=== PATIENT | female | born 1990 | race African-American/Black ===

== ENCOUNTER 2017-10-09 09:51 | Emergency (ER) | payer OTHER ==
[~2017-10-09] VITALS: Ht 170.2 cm; Wt 129.7 kg
[2017-10-09] MEDS ORDERED: FUROSEMIDE20 M1 ORAL (10:02)
[2017-10-09] MEDS ORDERED: LISINOPRIL2.5 MG ORAL (10:02)
[2017-10-09] MEDS ORDERED: Morphine Sulfate 4mg/ml Inj IVP ONE ×2 (10:30→14:45)
[2017-10-09 10:51] LABS: APPEARANCE,URINE CLEAR; BILIRUBIN, URINE NEGATIVE (NEGATIVE); GLUCOSE, URINE (UA) NEGATIVE (NEGATIVE); KETONES,URINE 2+ (NEGATIVE); LEUKOCYTE ESTERASE ,URINE NEGATIVE (NEGATIVE); NITRITE,URINE NEGATIVE (NEGATIVE); PH,URINE 6 (4.5-8.0); PROTEIN,URINE NEGATIVE (NEGATIVE); UROBILINOGEN,URINE NORMAL MG/DL (0.0-1.0)
[2017-10-09 10:53] LABS: COLOR,URINE YELLOW
[2017-10-09] MEDS ORDERED: DiphenhydrAMINE 50mg/ml Inj IVP ONE ×2 (11:15→15:30)
[2017-10-09 11:35] LABS: BASOPHILS % (AUTO) 0.9 % (0.0-2.0); EOSINOPHILS % (AUTO) 0.4 % (0.0-3.0); HEMATOCRIT 30.6 % (37.0-47.0); HEMOGLOBIN 9.6 G/DL (12.0-16.0); LYMPHOCYTES % (AUTO) 34.9 % (20.0-45.0); MEAN CORPUSCULAR VOLUME 76 FL (80-99); MONOCYTES % (AUTO) 11.9 % (1.0-10.0); NEUTROPHILS % (AUTO) 51.8 % (45.0-75.0); PLATELET COUNT 405 K/UL (150-450); RED BLOOD COUNT 4.01 M/UL (4.20-5.40); RED CELL DISTRIBUTION WIDTH 15.1 % (11.6-14.8); WHITE BLOOD COUNT 4.8 K/UL (4.8-10.8)
[2017-10-09 11:46] LABS: ANION GAP 7 mmol/L (5-15); BLOOD UREA NITROGEN 8 mg/dL (7-18); CALCIUM 8.8 MG/DL (8.5-10.1); CARBON DIOXIDE 27 MMOL/L (21-32); CHLORIDE 105 MMOL/L (98-107); POTASSIUM 3.8 MMOL/L (3.5-5.1); SODIUM 138 MMOL/L (136-145)
[2017-10-09 11:52] LABS: ALANINE AMINOTRANSFERASE 22 U/L (12-78); ALBUMIN 3.3 G/DL (3.4-5.0); ALBUMIN/GLOBULIN RATIO 0.8 (1.0-2.7); ALKALINE PHOSPHATASE 65 U/L (46-116); ASPARTATE AMINO TRANSFERASE 20 U/L (15-37); BILIRUBIN,TOTAL 0.3 MG/DL (0.2-1.0)
--- NOTE | 2017-10-09 12:09 | Diagnostic Imaging Report ---
Indication: Line placement Comparison: None A single view chest radiograph was obtained. Findings: There is a PICC line on the right side. The tip is projected over the SVC in good position. Sternotomy is noted. Lungs are clear. The heart is prominent size but accounting for low lung volumes may be normal. The bones are unremarkable. IMPRESSION: PICC line appears to be in good position.
[2017-10-09] MEDS ORDERED: Heparin 2000 units/Ns 1000ml IV ONE (13:00)
[2017-10-09] MEDS ORDERED: Lidocaine 1% MPF 10mg/ml 5ml IM ONE ×3 (13:00)
[2017-10-09 14:25] VITALS: BP 133/62
--- NOTE | 2017-10-09 14:37 | Diagnostic Imaging Report ---
Indication: Abdominal pain Technique: Continuous helical transaxial imaging of the abdomen and pelvis was obtained from the lung bases to the pubic symphysis during intravenous contrast administration. Coronal 2-D reformats were also obtained. Study obtained in a Siemens sensation [address] Automatic Exposure Control was utilized. Total Dose length Product (DLP): 1173.[address] Dose Index Volume (CTDIvol): 19.75 mGy Comparison: None Findings: There is a small hiatal hernia present. Lung bases are clear. The gallbladder is absent. Normal appendix noted. Uterus demonstrated. No bowel obstruction, free fluid or free air identified. Bladder is unremarkable in appearance. There is no hydronephrosis. Solid organs are normal in appearance. There is a 4 x 1.7 cm cystic structure in the right adnexa. This probably ovarian. IMPRESSION: Probable right ovarian cyst Hiatal hernia Apparent cholecystectomy. The CT scanner at [facility] is accredited by the [employer] and the scans are performed using dose optimization techniques as appropriate to a performed exam including Automatic Exposure control.
[2017-10-09 15:00] VITALS: BP 130/80
--- NOTE | 2017-10-09 15:10 | Diagnostic Imaging Report ---
Indication: middle or intermediate [employer] principal venous access Findings: After the indications, procedure, risks, complications, and alternatives of the procedure were explained, written informed consent was obtained. The right upper extremity was prepped with alcohol. All elements of maximal sterile barrier technique were followed including usage of a cap, mask, sterile gown, sterile gloves, hand hygiene and a large sterile sheet. Sonographic evaluation of the upper extremity was performed demonstrating a patent and compressible brachial vein. Access was obtained under real-time ultrasound guidance (with utilization of sterile gel and sterile probe cover) and digital image was saved and archived. An .018 wire was introduced. Needle exchanged for a 5 [place] peel-away sheath. Measurements were obtained. A 5 [place] dual-lumen Power PICC line catheter was cut to 20 cm and introduced over the wire. Peel-away sheath and wire were removed.Catheter was secured to the skin using 2-0 Prolene suture. Both ports aspirate and flush easily. Fluoroscopic images show distal tip in the superior vena cava. Total fluoroscopic time 1.9 minutes. Impression: Successful placement of an upper extremity PICC line catheter
[2017-10-09] MEDS ORDERED: NORCO 5-325 TA1 EACH ORAL (15:11)
--- NOTE | 2017-10-09 17:21 | Emergency Room Report ---
History of Present Illness General Chief Complaint: Abdominal Pain Source: Patient Present Illness HPI 26-year-old female presents ED for evaluation. Patient presented with lower abdominal pain 7 days. Localized to right lower quadrant. Sharp. 7/10, nonradiating. Notes nausea and vomiting. Denies fevers or chills. Denies flank pain. Patient has a PICC line in place for blood transfusions. No other aggravating or relieving factors. Denies any other associated symptoms Allergies: Coded Allergies: ASPIRIN (Unverified Allergy, Unknown, 10/09/17) METOCLOPRAMIDE (Verified Allergy, Unknown, 10/09/17) Patient History Past Medical History: other - anemia Past Surgical History: none Pertinent Family History: none Social History: Denies: smoking, alcohol use, drug use Last Menstrual Period: 10/05/17 Now: No Immunizations: UTD Reviewed Nursing Documentation: PMH: Agreed, PSxH: Agreed Nursing Documentation-PMH Past Medical History: No History, Except For Hx Cardiac Problems: Yes Review of Systems All Other Systems: negative except mentioned in HPI Physical Exam Vital Signs Date Time Temp Pulse Resp B/P (MAP) Pulse Ox O2 Delivery O2 Flow Rate FiO2 10/09/17 09:57 98.5 82 18 106/71 98 Room Air 98.4 Sp02 EP Interpretation: reviewed, normal General Appearance: no apparent distress, alert, GCS 15, non-toxic, obese Head: normocephalic, atraumatic Eyes: bilateral eye normal inspection, bilateral eye PERRL ENT: hearing grossly normal, normal pharynx, no angioedema, normal voice Neck: full range of motion, supple/symm/no masses Respiratory: chest non-tender, lungs clear, normal breath sounds, speaking full sentences Cardiovascular #1: regular rate, rhythm, no edema Cardiovascular #2: 2+ carotid (R), 2+ carotid (L), 2+ radial (R), 2+ radial (L) , 2+ dorsalis pedis (R), 2+ dorsalis pedis (L) Gastrointestinal: normal bowel sounds, soft, non-distended, no guarding, no rebound, tenderness - RLQ Rectal: deferred Genitourinary: normal inspection, no CVA tenderness Musculoskeletal: back normal, gait/station normal, normal range of motion, non- tender Neurologic: alert, oriented x3, responsive, motor strength/tone normal, sensory intact, speech normal Psychiatric: judgement/insight normal, memory normal, mood/affect normal, no suicidal/homicidal ideation Reflexes: 3+ bicep (R), 3+ bicep (L), 3+ tricep (R), 3+ tricep (L), 3+ knee (R) , 3+ knee (L) Skin: normal color, no rash, warm/dry, well hydrated Lymphatic: no adenopathy Medical Decision Making Diagnostic Impression: Primary Impression: Ovarian cyst Qualified Codes: N83.201 - Unspecified ovarian cyst, right side Additional Impression: Occluded PICC line Qualified Codes: T82.898A - Other specified complication of vascular prosthetic devices, implants and grafts, initial encounter ER Course Hospital Course 26-year-old F presents to ED with abdominal pain, with nausea Differential diagnosis includes-appendicitis, cholecystitis, small bowel obstruction, gastritis, Clinical course Patient placed on stretcher. After initial history and physical I ordered labs , IV fluids, pain medications and CT scan Labs - no leukocytosis, electrolytes ok, LFTs normal, UA unremarkable Attempt to use the PICC line was unsuccessful. PICC line was then replaced by radiology CT scan shows no evidence of appendicitis, likely right ovarian cyst Upon reassessment, patient states pain has improved. Discussed findings with patient. Safe for discharge I feel this is a highly complex case requiring extensive working including EKG/ Rhythm strip, Xray/CT/US, Blood/urine lab work, repeat exams while in ED, and administration of strong opiates/narcotics for pain control, admission to hospital or close patient follow up. Diagnosis - ovarian cyst, occluded PICC line Stable and discharged to home with Elizabeth. Followup with PMD. Return to ED if symptoms recur or worsen Labs Test 10/09/17 10:20 10/09/17 11:25 Urine Color Yellow Urine Appearance Clear Urine pH 6 (4.5-8.0) Urine Specific [place] 1.025 (1.005-1.035) Urine Protein Negative (NEGATIVE) Urine Glucose (UA) Negative (NEGATIVE) Urine Ketones 2+ (NEGATIVE) Urine Occult Blood 3+ (NEGATIVE) Urine Nitrite Negative (NEGATIVE) Urine Bilirubin Negative (NEGATIVE) Urine Urobilinogen Normal MG/DL (0.0-1.0) Urine Leukocyte Esterase Negative (NEGATIVE) Urine RBC 10-15 /HPF (0 - 2) Urine WBC 2-4 /HPF (0 - 2) Urine Squamous Epithelial Cells Few /LPF (NONE/OCC) Urine Bacteria Few /HPF (NONE) Urine Mucus Few /LPF (NONE/OCC) Urine HCG, Qualitative Negative White Blood Count 4.8 K/UL (4.8-10.8) Red Blood Count 4.01 M/UL (4.20-5.40) Hemoglobin 9.6 G/DL (12.0-16.0) Hematocrit 30.6 % (37.0-47.0) Mean Corpuscular Volume 76 FL (80-99) Mean Corpuscular Hemoglobin 23.9 PG (27.0-31.0) Mean Corpuscular Hemoglobin Concent 31.3 G/DL (32.0-36.0) Red Cell Distribution Width 15.1 % (11.6-14.8) Platelet Count 405 K/UL (150-450) Mean Platelet Volume 5.3 FL (6.5-10.1) Neutrophils (%) (Auto) 51.8 % (45.0-75.0) Lymphocytes (%) (Auto) 34.9 % (20.0-45.0) Monocytes (%) (Auto) 11.9 % (1.0-10.0) Eosinophils (%) (Auto) 0.4 % (0.0-3.0) Basophils (%) (Auto) 0.9 % (0.0-2.0) Sodium Level 138 MMOL/L (136-145) Potassium Level 3.8 MMOL/L (3.5-5.1) Chloride Level 105 MMOL/L (98-107) Carbon Dioxide Level 27 MMOL/L (21-32) Anion Gap 7 mmol/L (5-15) Blood Urea Nitrogen 8 mg/dL (7-18) Creatinine 1.0 MG/DL (0.55-1.30) Estimat Glomerular Filtration Rate > 60 mL/min (>60) Glucose Level 86 MG/DL (74-106) Calcium Level 8.8 MG/DL (8.5-10.1) Total Bilirubin 0.3 MG/DL (0.2-1.0) Aspartate Amino Transf (AST/SGOT) 20 U/L (15-37) Alanine Aminotransferase (ALT/SGPT) 22 U/L (12-78) Alkaline Phosphatase 65 U/L (46-116) Total Protein 7.3 G/DL (6.4-8.2) Albumin 3.3 G/DL (3.4-5.0) Globulin 4.0 g/dL Albumin/Globulin Ratio 0.8 (1.0-2.7) Lipase 126 U/L (73-393) Chest X-Ray Diagnostic Results Chest X-Ray Diagnostic Results : Chest X-Ray Ordered: Yes # of Views/Limited/Complete: 1 View Indication: Chest Pain EP Interpretation: Yes Interpretation: no consolidation, no effusion, no pneumothorax, no acute cardiopulmonary disease, other - PICC line in place Impression: No acute disease Electronically Signed by: Electronically signed by Damian Roberts MD CT/MRI/US Diagnostic Results CT/MRI/US Diagnostic Results : Imaging Test Ordered: CT A/P Impression R ovarian cyst Last Vital Signs Date Time Temp Pulse Resp B/P (MAP) Pulse Ox O2 Delivery O2 Flow Rate FiO2 10/09/17 14:25 98.5 90 19 133/62 100 Room Air 98.5 Status: improved Disposition: HOME, SELF-CARE Condition: Stable Scripts Hydrocodone Bit/Acetaminophen 5-325* (NORCO 5-325*) 1 Each Tablet 1 TAB ORAL Q6H Y for For Pain, #10 TAB 0 Refills Prov: DAMIAN ROBERTS M.D. 10/09/17 Departure Forms: Return to School Return to School On: Oct 10, 2017 School Release Restrictions: None Patient Instructions: Ovarian Cyst, [id number], PICC Home Guide DAMIAN ROBERTS M.D. Oct 09, 2017 17:21
== END 2017-10-09 16:00 | disposition home or self-care (01) ==
LOC: EMR 11:00
DX: N83.201 Unspecified ovarian cyst, right side (principal); T82.594A Other mechanical complication of infusion catheter, initial encounter; Y84.8 Other medical procedures as the cause of abnormal reaction of the patient, or of later complication, without mention of misadventure at the time of the procedure; Y92.9 Unspecified place or not applicable; K44.9 Diaphragmatic hernia without obstruction or gangrene; Z88.6 Allergy status to analgesic agent
CPT/HCPCS: 36415; 36569; 71045; 74177; 76937; 80053; 81003; 81025; 83690; 85025; 96374; 96375; 99284; J1200; J1644; J2270; J2405; Q9967

== ENCOUNTER 2017-10-13 09:35 | Emergency (ER) | payer OTHER ==
[~2017-10-13] VITALS: Ht 170.2 cm; Wt 134.3 kg
[~2017-10-13 09:35] MED LIST: FUROSEMIDE20 M1 ORAL; LISINOPRIL2.5 MG ORAL; NORCO 5-325 TA1 EACH ORAL
[2017-10-13] MEDS ORDERED: HYDROmorphone 1mg/ml Carpuject IVP ONE ×2 (10:15→11:45)
[2017-10-13 10:56] LABS: APPEARANCE,URINE SLIGHTLY CLOUDY; BILIRUBIN, URINE NEGATIVE (NEGATIVE); COLOR,URINE PALE YELLOW; GLUCOSE, URINE (UA) NEGATIVE (NEGATIVE); KETONES,URINE NEGATIVE (NEGATIVE); LEUKOCYTE ESTERASE ,URINE 3+ (NEGATIVE); NITRITE,URINE NEGATIVE (NEGATIVE); PH,URINE 5 (4.5-8.0); PROTEIN,URINE 1+ (NEGATIVE); UROBILINOGEN,URINE NORMAL MG/DL (0.0-1.0)
[2017-10-13 11:03] VITALS: BP 116/65
[2017-10-13 11:04] LABS: BASOPHILS % (AUTO) 1.6 % (0.0-2.0); HEMATOCRIT 30.7 % (37.0-47.0); HEMOGLOBIN 9.6 G/DL (12.0-16.0); LYMPHOCYTES % (AUTO) 28.5 % (20.0-45.0); MEAN CORPUSCULAR VOLUME 77 FL (80-99); MONOCYTES % (AUTO) 10.6 % (1.0-10.0); NEUTROPHILS % (AUTO) 58.3 % (45.0-75.0); PLATELET COUNT 380 K/UL (150-450); RED BLOOD COUNT 3.99 M/UL (4.20-5.40); RED CELL DISTRIBUTION WIDTH 15.2 % (11.6-14.8); WHITE BLOOD COUNT 4.7 K/UL (4.8-10.8)
[2017-10-13 11:09] LABS: ANION GAP 8 mmol/L (5-15); BLOOD UREA NITROGEN 8 mg/dL (7-18); CALCIUM 9.1 MG/DL (8.5-10.1); CARBON DIOXIDE 26 MMOL/L (21-32); CHLORIDE 103 MMOL/L (98-107); POTASSIUM 3.8 MMOL/L (3.5-5.1); SODIUM 137 MMOL/L (136-145)
[2017-10-13 11:13] LABS: ALANINE AMINOTRANSFERASE 24 U/L (12-78); ALBUMIN 3.4 G/DL (3.4-5.0); ALBUMIN/GLOBULIN RATIO 0.9 (1.0-2.7); ALKALINE PHOSPHATASE 65 U/L (46-116); ASPARTATE AMINO TRANSFERASE 20 U/L (15-37); BILIRUBIN,TOTAL 0.2 MG/DL (0.2-1.0)
[2017-10-13] MEDS ORDERED: DiphenhydrAMINE 50mg/ml Inj IVP ONE (11:15)
--- NOTE | 2017-10-13 11:24 | Diagnostic Imaging Report ---
Indication: Abdominal pain Technique: Supine views of the abdomen Comparison: None Findings: Bowel gas pattern is nonobstructive and nonspecific. Osseous structures demonstrate no acute abnormality. There is no gross free intraperitoneal air. Impression: Nonobstructive and nonspecific bowel gas pattern.
[2017-10-13] MEDS ORDERED: cefTRIAXone 1 GM in NS 55 ML IVPB ONE (12:45)
[2017-10-13] MEDS ORDERED: Hydromorphone 0.5mg/0.5ml inj IVP ONE (12:45)
--- NOTE | 2017-10-13 13:42 | Emergency Room Report ---
History of Present Illness General Chief Complaint: Abdominal Pain Source: Patient Present Illness HPI Patient presents with severe abdominal pain. Periumbilical, constant 10/10, aching pressure. Has had for 2 weeks. She was seen here and had a CT of the abdomen which revealed an ovarian cyst on 10/09. She had a PICC line replaced during that visit. She states she was admitted 2 weeks ago in [place] for a partial bowel obstruction and states it was improved with bowel rest (NG) and analgesia. She states the pain was somewhat improved during the last visit, however, it never went away and was still severe and continued. She had [place], but states this has not helped. Denies fevers, but feels feverish. + Nausea. Moved her bowels 3 days ago and states she has not been passing gas. Denies dysuria. She states morphine did nothing for her. She also states fentanyl has not helped. LNMP was 1 week ago. UA was clear last visit. H/O atrial septal defect with surgical repair. No chest pain, dyspnea, palpitations. H/O HTN on medication. PICC line (apparently "for blood transfusions"). Not specific in nature of anemia. Anxiety. No headache. Allergies: Coded Allergies: ASPIRIN (Unverified Allergy, Unknown, 10/09/17) METOCLOPRAMIDE (Verified Allergy, Unknown, 10/09/17) Patient History Past Medical History: see triage record Past Surgical History: shiv, other - PICC, atrial septal defect repair - sternotomy Social History: Denies: smoking, alcohol use Social History Narrative with family, recent move to [place] from [place] Last Menstrual Period: 1 wek ago Reviewed Nursing Documentation: PMH: Agreed, PSxH: Agreed Nursing Documentation-PMH Hx Cardiac Problems: Yes Review of Systems All Other Systems: negative except mentioned in HPI Physical Exam Vital Signs Date Time Temp Pulse Resp B/P (MAP) Pulse Ox O2 Delivery O2 Flow Rate FiO2 10/13/17 09:45 98.8 88 16 114/80 100 Room Air 98.8 Sp02 EP Interpretation: reviewed, normal General Appearance: well appearing, GCS 15, mild distress, other - standing at bedside, rocking with pain Head: normocephalic Eyes: bilateral eye normal inspection, bilateral eye PERRL ENT: moist mucus membranes Neck: supple Respiratory: lungs clear, normal breath sounds Cardiovascular #1: regular rate, rhythm, other - sternotomy scar Cardiovascular #2: 2+ radial (R) Gastrointestinal: normal inspection, normal bowel sounds, no mass, non- distended, no rebound, guarding - minimal, tenderness - periumbilical, overweight Musculoskeletal: back normal, gait/station normal, normal range of motion, no calf tenderness Neurologic: alert, oriented x3, grossly normal Psychiatric: anxious - and in apparent pain Skin: normal inspection, warm/dry Medical Decision Making Diagnostic Impression: Primary Impression: Abdominal pain Qualified Codes: R10.33 - Periumbilical pain Additional Impressions: Urinary tract infection Qualified Codes: N30.00 - Acute cystitis without hematuria Ovarian cyst Qualified Codes: N83.201 - Unspecified ovarian cyst, right side AMA Anemia Qualified Codes: D50.9 - Iron deficiency anemia, unspecified ER Course The patient presents with severe abdominal pain. Differential includes appendicitis, small bowel obstruction, urinary tract infection, ovarian cyst, gastroenteritis amongst others. The patient's not moving her bowels for 3 days and stopped passing gas which makes small bowel obstruction more likely. Evaluation will be with labs and plain films as a CT was just performed. If labs are abnormal then CT may be repeated. The patient will be treated with IV hydration and analgesia. She also needs Zofran and she's been vomiting. She is fairly specific in requesting Dilaudid. Initial dose of dilaudid not help. (She appears improved and in less pain.) Repeat dilaudid. Abd films without SBO. Labs with pyuria. Normal WBC. Low H/H (same as prior) . CMP unremarkable. UA with new pyuria. Rocephin given. (CT reviewed.) Patient requesting more dilaudid. Given. More calm and not in severe pain, but states pain is still "severe". (Possible opiate tolerance and seeking behavior. However, pain medicine repeated.) Patient needing admission as still significant pain and concern over possible partial SBO. Discussed and approved to be admitted here. Patient refuses to be admitted here and wants to either go to [facility] or [facility]. She made several calls to attempt to arrange transfer. I also called, but case finisher refused transfer. Told she also needs treatment for UTI. Patient refusing admission here as "her family lives nearer to [facility]" and "anxiety" of other hospitals. I told her she risks dying if she leaves. She states it is our fault that she is leaving as we could not arrange for her transfer. Patient signed out AMA. Laboratory Tests Test 10/13/17 09:57 10/13/17 10:40 Urine Color Pale yellow Urine Appearance Slightly cloudy Urine pH 5 (4.5-8.0) Urine Specific [place] 1.025 (1.005-1.035) Urine Protein 1+ (NEGATIVE) H Urine Glucose (UA) Negative (NEGATIVE) Urine Ketones Negative (NEGATIVE) Urine Occult Blood 3+ (NEGATIVE) H Urine Nitrite Negative (NEGATIVE) Urine Bilirubin Negative (NEGATIVE) Urine Urobilinogen Normal MG/DL (0.0-1.0) Urine Leukocyte Esterase 3+ (NEGATIVE) H Urine RBC 2-4 /HPF (0 - 2) H Urine WBC Tntc /HPF (0 - 2) H Urine Squamous Epithelial Cells Many /LPF (NONE/OCC) H Urine Bacteria Few /HPF (NONE) Urine HCG, Qualitative Negative Urine Opiates Screen Negative (NEGATIVE) Urine Barbiturates Screen Negative (NEGATIVE) Phencyclidine (PCP) Screen Negative (NEGATIVE) Urine Amphetamines Screen Negative (NEGATIVE) Urine Benzodiazepines Screen Negative (NEGATIVE) Urine Cocaine Screen Negative (NEGATIVE) Urine Marijuana (THC) Screen Negative (NEGATIVE) White Blood Count 4.7 K/UL (4.8-10.8) L Red Blood Count 3.99 M/UL (4.20-5.40) L Hemoglobin 9.6 G/DL (12.0-16.0) L Hematocrit 30.7 % (37.0-47.0) L Mean Corpuscular Volume 77 FL (80-99) L Mean Corpuscular Hemoglobin 24.0 PG (27.0-31.0) L Mean Corpuscular Hemoglobin Concent 31.1 G/DL (32.0-36.0) L Red Cell Distribution Width 15.2 % (11.6-14.8) H Platelet Count 380 K/UL (150-450) Mean Platelet Volume 5.4 FL (6.5-10.1) L Neutrophils (%) (Auto) 58.3 % (45.0-75.0) Lymphocytes (%) (Auto) 28.5 % (20.0-45.0) Monocytes (%) (Auto) 10.6 % (1.0-10.0) H Eosinophils (%) (Auto) 1.0 % (0.0-3.0) Basophils (%) (Auto) 1.6 % (0.0-2.0) Prothrombin Time 10.5 SEC (9.30-11.50) Prothrombin Time INR 1.0 (0.9-1.1) PTT 30 SEC (23-33) Sodium Level 137 MMOL/L (136-145) Potassium Level 3.8 MMOL/L (3.5-5.1) Chloride Level 103 MMOL/L (98-107) Carbon Dioxide Level 26 MMOL/L (21-32) Anion Gap 8 mmol/L (5-15) Blood Urea Nitrogen 8 mg/dL (7-18) Creatinine 1.0 MG/DL (0.55-1.30) Estimate Glomerular Filtration Rate > 60 mL/min (>60) Glucose Level 97 MG/DL (74-106) Calcium Level 9.1 MG/DL (8.5-10.1) Total Bilirubin 0.2 MG/DL (0.2-1.0) Aspartate Amino Transferase (AST) 20 U/L (15-37) Alanine Aminotransferase (ALT) 24 U/L (12-78) Alkaline Phosphatase 65 U/L (46-116) Total Protein 7.4 G/DL (6.4-8.2) Albumin 3.4 G/DL (3.4-5.0) Globulin 4.0 g/dL Albumin/Globulin Ratio 0.9 (1.0-2.7) L Lipase 165 U/L (73-393) Other X-Ray Diagnostic Results Other X-Ray Diagnostic Results : X-Ray ordered: abd # of Views/Limited Vs Complete: 1 View Indication: Pain EP Interpretation: Yes Interpretation: nonspecific bowel gas, no sbo, other - paucity of gas Impression: Other Electronically Signed by: Haresh Da Silva MD Last Vital Signs Date Time Temp Pulse Resp B/P (MAP) Pulse Ox O2 Delivery O2 Flow Rate FiO2 10/13/17 17:04 98.8 76 15 123/65 100 Room Air 209.8 Status: improved Disposition: AGAINST MEDICAL ADVICE Condition: Serious Referrals: [facility],REFERRING (PCP) Haresh Da Silva M.D. Oct 13, 2017 13:42
[2017-10-13 14:23] VITALS: BP 123/65
[2017-10-13 17:04] VITALS: BP 123/65
== END 2017-10-13 15:15 | disposition left against medical advice (07) ==
LOC: EMR 10:04 → EDBEDREQ 10:32 → UNDOADMIN 14:31 → 3E 14:31 → EMR 15:15 → CANBEDREQ 15:18
DX: N30.00 Acute cystitis without hematuria (principal); R10.33 Periumbilical pain; N83.201 Unspecified ovarian cyst, right side; D50.9 Iron deficiency anemia, unspecified; Z90.49 Acquired absence of other specified parts of digestive tract; Z88.6 Allergy status to analgesic agent; Z88.8 Allergy status to other drugs, medicaments and biological substances; I10 Essential (primary) hypertension
CPT/HCPCS: 36415; 74018; 80053; 80307; 81003; 81025; 83690; 85025; 85610; 85730; 87086; 96361; 96374; 96375; 99284; J0696; J1170; J1200; J2405

== ENCOUNTER 2017-10-16 18:43 | Emergency (ER) | payer OTHER ==
[~2017-10-16] VITALS: Ht 170.2 cm; Wt 134.3 kg
--- NOTE | 2017-10-16 19:19 | Emergency Room Report ---
History of Present Illness General Chief Complaint: Abdominal Pain Source: Patient Present Illness HPI 26-year-old female, history of cardiomyopathy due to heart problems as a child. Also history of multiple abdominal surgeries including ovarian cystectomy, myomectomy for fibroids removal, cholecystectomy, presenting with abdominal pain for 1-1/2 weeks. Patient also states that the last time she had a bowel movement was 4 days ago, last time she passed gas was yesterday. Has had intractable nausea or vomiting, about 6 times a day. Complaining of abdominal pain all over but mostly around the umbilical region. No vaginal bleeding or discharge Allergies: Coded Allergies: ASPIRIN (Unverified Allergy, Severe, Anaphylaxis, 10/16/17) METOCLOPRAMIDE (Verified Allergy, Intermediate, 10/16/17) anxiety PROCHLORPERAZINE (Verified Allergy, Unknown, 10/16/17) anxiety Patient History Past Medical History: see triage record Past Surgical History: none Pertinent Family History: none Last Menstrual Period: 10/12/17 Now: No : 0 Reviewed Nursing Documentation: PMH: Agreed, PSxH: Agreed Nursing Documentation-PMH Hx Cardiac Problems: Yes - atrial septal defect cardiomegaly arrythmia Hx Gastrointestinal Problems: Yes - fibroids Review of Systems All Other Systems: negative except mentioned in HPI Physical Exam Vital Signs Date Time Temp Pulse Resp B/P (MAP) Pulse Ox O2 Delivery O2 Flow Rate FiO2 10/16/17 18:52 98.0 99 18 125/79 100 Room Air 98.1 Sp02 EP Interpretation: reviewed, normal General Appearance: mild distress Head: normocephalic, atraumatic Eyes: bilateral eye normal inspection, bilateral eye PERRL, bilateral eye EOMI ENT: normal ENT inspection, normal pharynx, normal voice, moist mucus membranes Neck: normal inspection, full range of motion, supple Respiratory: normal inspection, lungs clear, normal breath sounds, no respiratory distress, no retraction, no wheezing, speaking full sentences, chest symmetrical Cardiovascular #1: normal inspection, regular rate, rhythm, no edema, normal capillary refill Cardiovascular #2: 2+ radial (R), 2+ radial (L) Gastrointestinal: other - Large abdomen, soft, normal bowel sounds, some tenderness noted periumbilical region, no rebound Musculoskeletal: normal inspection, back normal, normal range of motion, non- tender Neurologic: normal inspection, alert, oriented x3, responsive, motor strength/ tone normal, sensory intact, normal gait, speech normal Psychiatric: normal inspection, judgement/insight normal, memory normal Skin: normal inspection, normal color, no rash, warm/dry, well hydrated, normal turgor Medical Decision Making Diagnostic Impression: Primary Impression: Abdominal pain Additional Impressions: Urinary tract infection Intractable nausea and vomiting ER Course 26-year-old female with 1-1/2 weeks of nausea vomiting and abdominal pain Differential Diagnosis: Gastritis, gastroenteritis, appendicitis, diverticulitis, SBO, UTI/pyelo Plan: Basic labs, ua, UCG Zofran, IVF Abdominal x-ray, consider CT ER course: Patient has remained HD stable during ED stay. +UTI, ceftriaxone given Ct neg for acute process Disposition: Patient will be admitted to outside hospital due to insurance DW Dr Lewis Please note that this Emergency Department Report was dictated using [employer] design manager technology software, occasionally this can lead to erroneous entry secondary to interpretation by the dictation equipment Laboratory Tests Test 10/16/17 19:30 10/16/17 21:10 Urine Color Pale yellow Urine Appearance Slightly cloudy Urine pH 5 (4.5-8.0) Urine Specific [place] 1.025 (1.005-1.035) Urine Protein Negative (NEGATIVE) Urine Glucose (UA) Negative (NEGATIVE) Urine Ketones 1+ (NEGATIVE) H Urine Occult Blood 1+ (NEGATIVE) H Urine Nitrite Negative (NEGATIVE) Urine Bilirubin Negative (NEGATIVE) Urine Urobilinogen Normal MG/DL (0.0-1.0) Urine Leukocyte Esterase 3+ (NEGATIVE) H Urine RBC 5-10 /HPF (0 - 2) H Urine WBC 10-15 /HPF (0 - 2) H Urine Squamous Epithelial Cells Moderate /LPF (NONE/OCC) H Urine Bacteria Moderate /HPF (NONE) H Urine HCG, Qualitative Negative (NEGATIVE) White Blood Count 6.4 K/UL (4.8-10.8) Red Blood Count 4.19 M/UL (4.20-5.40) L Hemoglobin 10.0 G/DL (12.0-16.0) L Hematocrit 32.0 % (37.0-47.0) L Mean Corpuscular Volume 76 FL (80-99) L Mean Corpuscular Hemoglobin 23.7 PG (27.0-31.0) L Mean Corpuscular Hemoglobin Concent 31.1 G/DL (32.0-36.0) L Red Cell Distribution Width 15.0 % (11.6-14.8) H Platelet Count 381 K/UL (150-450) Mean Platelet Volume 5.5 FL (6.5-10.1) L Neutrophils (%) (Auto) 55.3 % (45.0-75.0) Lymphocytes (%) (Auto) 31.6 % (20.0-45.0) Monocytes (%) (Auto) 10.3 % (1.0-10.0) H Eosinophils (%) (Auto) 1.2 % (0.0-3.0) Basophils (%) (Auto) 1.6 % (0.0-2.0) Sodium Level Pending Potassium Level Pending Chloride Level Pending Carbon Dioxide Level Pending Blood Urea Nitrogen Pending Creatinine Pending Estimate Glomerular Filtration Rate Pending Glucose Level Pending Calcium Level Pending Total Bilirubin Pending Aspartate Amino Transferase (AST) Pending Alanine Aminotransferase (ALT) Pending Alkaline Phosphatase Pending Total Protein Pending Albumin Pending Globulin Pending Lipase Pending CT/MRI/US Diagnostic Results CT/MRI/US Diagnostic Results : Imaging Test Ordered: CT abdomen pelvis Impression CT ABDOMEN & PELVIS Without Contrast: Unremarkable appendix. No colitis or bowel obstruction. Small hiatal hernia. Abdominal mesh. Solid organs within normal limits. Last Vital Signs Date Time Temp Pulse Resp B/P (MAP) Pulse Ox O2 Delivery O2 Flow Rate FiO2 10/16/17 18:52 98.0 99 18 125/79 100 Room Air 98.1 Disposition: XFER T-[facility] Condition: Serious Samuel Briscoe M.D. Oct 16, 2017 19:18
[2017-10-16 19:30] VITALS: BP 130/78
[2017-10-16 19:41] LABS: APPEARANCE,URINE SLIGHTLY CLOUDY; BILIRUBIN, URINE NEGATIVE (NEGATIVE); COLOR,URINE PALE YELLOW; GLUCOSE, URINE (UA) NEGATIVE (NEGATIVE); KETONES,URINE 1+ (NEGATIVE); LEUKOCYTE ESTERASE ,URINE 3+ (NEGATIVE); NITRITE,URINE NEGATIVE (NEGATIVE); PH,URINE 5 (4.5-8.0); PROTEIN,URINE NEGATIVE (NEGATIVE); UROBILINOGEN,URINE NORMAL MG/DL (0.0-1.0)
[2017-10-16] MEDS: Morphine Sulfate 4mg/ml Inj IVP ONE ×2 (20:09→21:37)
[2017-10-16 21:21] LABS: BASOPHILS % (AUTO) 1.6 % (0.0-2.0); EOSINOPHILS % (AUTO) 1.2 % (0.0-3.0); LYMPHOCYTES % (AUTO) 31.6 % (20.0-45.0); MEAN CORPUSCULAR VOLUME 76 FL (80-99); MONOCYTES % (AUTO) 10.3 % (1.0-10.0); NEUTROPHILS % (AUTO) 55.3 % (45.0-75.0); PLATELET COUNT 381 K/UL (150-450); RED BLOOD COUNT 4.19 M/UL (4.20-5.40); WHITE BLOOD COUNT 6.4 K/UL (4.8-10.8)
[2017-10-16 21:32] LABS: ANION GAP 7 mmol/L (5-15); BLOOD UREA NITROGEN 8 mg/dL (7-18); CALCIUM 8.3 MG/DL (8.5-10.1); CARBON DIOXIDE 24 MMOL/L (21-32); CHLORIDE 104 MMOL/L (98-107); POTASSIUM 3.9 MMOL/L (3.5-5.1); SODIUM 135 MMOL/L (136-145)
[2017-10-16 21:36] LABS: ALANINE AMINOTRANSFERASE 22 U/L (12-78); ALBUMIN 3.4 G/DL (3.4-5.0); ALBUMIN/GLOBULIN RATIO 0.8 (1.0-2.7); ALKALINE PHOSPHATASE 73 U/L (46-116); ASPARTATE AMINO TRANSFERASE 26 U/L (15-37); BILIRUBIN,TOTAL < 0.1 MG/DL (0.2-1.0)
[2017-10-16] MEDS: cefTRIAXone 1 GM in NS 55 ML IVPB ONE (21:37)
[2017-10-16] MEDS: DiphenhydrAMINE 50mg/ml Inj IVP ONE (21:49)
[2017-10-16 23:30] VITALS: BP 125/75
[2017-10-16] MEDS: Morphine Sulfate 2mg/ml Inj IVP ONE (23:45)
[2017-10-17 00:10] VITALS: BP 125/75
--- NOTE | 2017-10-17 08:49 | Diagnostic Imaging Report ---
Indication: Abdominal pain for 1 1/2 weeks, constipation, intractable nausea and vomiting Technique: Spiral acquisitions obtained through the abdomen and pelvis. No oral contrast utilized, per emergency room physician request No IV contrast utilized, per referring physician request.. Multiplanar reconstructions were generated. Total dose length product 1117.71 mGycm. CTDIvol(s) 19.95 mGy. Dose reduction achieved using automated exposure control Comparison: None Findings: Normal appendix. No evidence of diverticulosis or diverticulitis no small bowel distention. No free or loculated intraperitoneal air or fluid is evident. There is a moderate-sized sliding-type hiatal hernia. Stomach and duodenum are otherwise unremarkable. There is evidence of prior abdominal wall hernia repair Surgically absent gallbladder. Lack of IV contrast limits assessment of the solid organs. The liver, bile ducts, pancreas, spleen, adrenals, kidneys are all unremarkable. Uterus and ovaries are unremarkable. No pelvic mass or adenopathy. No retroperitoneal or mesenteric mass or adenopathy. The included lung bases are clear. The bones are unremarkable. Impression: No acute or significant abnormality Hiatal hernia Evidence of prior abdominal wall hernia repair This agrees with the preliminary interpretation provided overnight by [facility] telerad[facility] service. The CT scanner at [facility] is accredited by the [employer] and the scans are performed using protocols designed to limit radiation exposure to as low as reasonably achievable to attain images of sufficient resolution adequate for diagnostic evaluation.
== END 2017-10-17 00:10 | disposition short-term general hospital (02) ==
LOC: EMR 19:30
DX: R10.9 Unspecified abdominal pain (principal); N39.0 Urinary tract infection, site not specified; R11.2 Nausea with vomiting, unspecified; K44.9 Diaphragmatic hernia without obstruction or gangrene; Z88.8 Allergy status to other drugs, medicaments and biological substances; Z88.6 Allergy status to analgesic agent; Z87.42 Personal history of other diseases of the female genital tract; Z98.890 Other specified postprocedural states
CPT/HCPCS: 36415; 74176; 80053; 81003; 81025; 83690; 85025; 87086; 96361; 96374; 96375; 99285; J0696; J1200; J2270; J2405

== ENCOUNTER 2017-11-13 15:34 | Emergency (ER) | payer OTHER ==
[~2017-11-13] VITALS: Ht 170.2 cm; Wt 131.5 kg
[2017-11-13] MEDS ORDERED: METOPROLOL SUCC25 MG ORAL (16:02)
[2017-11-13 16:41] LABS: APPEARANCE,URINE CLOUDY; BILIRUBIN, URINE NEGATIVE (NEGATIVE); GLUCOSE, URINE (UA) NEGATIVE (NEGATIVE); KETONES,URINE 1+ (NEGATIVE); LEUKOCYTE ESTERASE ,URINE 3+ (NEGATIVE); NITRITE,URINE NEGATIVE (NEGATIVE); PH,URINE 5 (4.5-8.0); PROTEIN,URINE 1+ (NEGATIVE); UROBILINOGEN,URINE 1 MG/DL (0.0-1.0)
[2017-11-13 16:43] LABS: COLOR,URINE YELLOW
[2017-11-13] MEDS ORDERED: Morphine Sulfate 10mg/ml Inj IM ONE (16:45)
--- NOTE | 2017-11-13 16:54 | Emergency Room Report ---
History of Present Illness General Chief Complaint: Abdominal Pain Source: Patient Present Illness HPI 26 YO Female presents to the ED c/o right adnexal pain that is 10/10 in severity. pt. reports hx of dermatoid ovarian cyst,Patient states that she has had several ED visits recently for the same symptoms and that her DRAPERY INSPECTOR has recommended surgery. Patient denies significant changes in character of her symptoms. According to her most recent US performed by her RADIATION ENGINEER last week, she has a 6 cm cyst in the right ovary and recommended surgery however with insurances it is taken while to schedule. Patient states that her pain has been progressive and she attempted to be seen by her DRAPERY INSPECTOR this week she has an appointment tomorrow. She is requesting something to control her pain in the meantime. She denies blood in the vomit or stool she denies melena she denies vaginal discharge, swollen tender lymph nodes, fevers or chills. Pt. reports the location and character of her pain is consistent with the symptoms she has been having chronically. Denies CP, Palpitations, LOC, AMS, dizziness, Changes in Vision, Sensation, paresthesias, or a sudden severe headache. Allergies: Coded Allergies: ACETAMINOPHEN (Verified Allergy, Severe, Anaphylaxis, 11/13/17) ASPIRIN (Unverified Allergy, Severe, Anaphylaxis, 10/16/17) METOCLOPRAMIDE (Verified Allergy, Intermediate, 10/16/17) anxiety PROCHLORPERAZINE (Verified Allergy, Unknown, 10/16/17) anxiety Patient History Past Medical History: see triage record Past Surgical History: none Pertinent Family History: none Last Menstrual Period: 11/06/17 Now: No Reviewed Nursing Documentation: PMH: Agreed; PSxH: Agreed Nursing Documentation-PMH Hx Cardiac Problems: Yes - atrial septal defect cardiomegaly arrythmia Hx Gastrointestinal Problems: Yes - fibroids Review of Systems All Other Systems: negative except mentioned in HPI Physical Exam Vital Signs Date Time Temp Pulse Resp B/P (MAP) Pulse Ox O2 Delivery O2 Flow Rate FiO2 11/13/17 15:58 98.5 87 16 151/80 100 Room Air 98.4 Sp02 EP Interpretation: reviewed, normal General Appearance: alert, GCS 15, non-toxic, mild distress Head: normocephalic, atraumatic ENT: hearing grossly normal, normal voice Neck: full range of motion Respiratory: chest non-tender, lungs clear, normal breath sounds, speaking full sentences Cardiovascular #1: regular rate, rhythm Gastrointestinal: normal bowel sounds, soft, non-distended, tenderness - right adnexal ttp, mild RLQ ttp, no reboud. Rectal: deferred Genitourinary: normal inspection, no CVA tenderness, other - moderate right adnexal pain. Musculoskeletal: back normal, gait/station normal, normal range of motion, non- tender Neurologic: alert, oriented x3, responsive, motor strength/tone normal, sensory intact, speech normal, grossly normal Psychiatric: judgement/insight normal Skin: normal color, no rash, warm/dry, well hydrated Lymphatic: no adenopathy Medical Decision Making PA Attestation Dr. kyle is my supervising Physician whom patient management has been discussed with. Diagnostic Impression: Primary Impression: Ovarian cyst Qualified Codes: N83.201 - Unspecified ovarian cyst, right side Additional Impression: Urinary tract infection Qualified Codes: N30.01 - Acute cystitis with hematuria ER Course 26 YO Female presents to the ED c/o right adnexal pain that is 10/10 in severity. pt. reports hx of dermatoid ovarian cyst,Patient states that she has had several ED visits recently for the same symptoms and that her DRAPERY INSPECTOR has recommended surgery. Patient denies significant changes in character of her symptoms. According to her most recent US performed by her RADIATION ENGINEER last week, she has a 6 cm cyst in the right ovary and recommended surgery however with insurances it is taken while to schedule. Patient states that her pain has been progressive and she attempted to be seen by her DRAPERY INSPECTOR this week she has an appointment tomorrow. She is requesting something to control her pain in the meantime. She denies blood in the vomit or stool she denies melena she denies vaginal discharge, swollen tender lymph nodes, fevers or chills. Pt. reports the location and character of her pain is consistent with the symptoms she has been having chronically. Denies CP, Palpitations, LOC, AMS, dizziness, Changes in Vision, Sensation, paresthesias, or a sudden severe headache. Ddx considered but are not limited to Diverticulitis, acute appy, ovarian torsion, ectopic , PID tubo-ovarian abscess, ovarian cyst. Vital signs: are WNL, pt. is afebrile H&PE are most consistent with possible ovarian cyst, however due to presentation will r/o torsion, ectopic, and stone. ORDERS: -UA: UTI -URINE HCG: Negative -given recent work up for similar presentation and that pt. has appt. with OBGYN tomorrow I do not feel more extensive work up is necessary at this time. Pt. is stable and my management has very little likely-santana to change. ED INTERVENTIONS: - 8mg IM Morphine. - 5mg [place] --During ED visit pt. actually was called back by OBGYN who is willing to see the pt. right now. pt. feels ready to be discharged reports her pain has subsided for now. DISCHARGE: At this time pt. is stable for d/c to home. Will provide printed patient care instructions, and any necessary prescriptions. Care plan and follow up instructions have been discussed with the patient prior to discharge. Labs Test 11/13/17 16:10 Urine Color Yellow Urine Appearance Cloudy Urine pH 5 (4.5-8.0) Urine Specific [place] 1.025 (1.005-1.035) Urine Protein 1+ (NEGATIVE) Urine Glucose (UA) Negative (NEGATIVE) Urine Ketones 1+ (NEGATIVE) Urine Occult Blood Negative (NEGATIVE) Urine Nitrite Negative (NEGATIVE) Urine Bilirubin Negative (NEGATIVE) Urine Urobilinogen 1 MG/DL (0.0-1.0) Urine Leukocyte Esterase 3+ (NEGATIVE) Urine RBC 2-4 /HPF (0 - 2) Urine WBC 10-15 /HPF (0 - 2) Urine Squamous Epithelial Cells Many /LPF (NONE/OCC) Urine Bacteria Many /HPF (NONE) Urine Opiates Screen Negative (NEGATIVE) Urine Barbiturates Screen Negative (NEGATIVE) Phencyclidine (PCP) Screen Negative (NEGATIVE) Urine Amphetamines Screen Negative (NEGATIVE) Urine Benzodiazepines Screen Negative (NEGATIVE) Urine Cocaine Screen Negative (NEGATIVE) Urine Marijuana (THC) Screen Negative (NEGATIVE) Last Vital Signs Date Time Temp Pulse Resp B/P (MAP) Pulse Ox O2 Delivery O2 Flow Rate FiO2 11/13/17 16:50 98.5 11/13/17 15:58 87 16 151/80 100 Room Air Disposition: HOME, SELF-CARE Condition: Stable Scripts Hydrocodone Bit/Acetaminophen 7.5-325* (NORCO 7.5-325*) 1 Each Tablet 1 TAB ORAL Q8HR PRN for For Pain, #5 TAB 0 Refills Prov: Charline Seo 11/13/17 Nitrofurantoin Monohyd/M-Cryst* (MACROBID 100 MG*) 100 Mg Capsule 100 MG ORAL EVERY 12 HOURS for 5 Days, #10 CAP Prov: Charline eSo 11/13/17 Patient Instructions: Urinary Tract Infection, [id number] Additional Instructions: Take medications as directed. Follow up with Your DRAPERY INSPECTOR within the next 24-of 72 hours. Recommend more aggressive treatment such as surgery to prevent continued frequent ED visits for pain management and failure of outpatient therapy. --Please review list of primary care clinics, if you do not already have a primary care provider Return sooner to ED if new symptoms occur, or current symptoms become worse. Do not drink alcohol, drive, or operate heavy machinery while taking [place] as this may cause drowsiness. - Please note that this Emergency Department Report was dictated using [employer] software, occasionally this can lead to erroneous entry secondary to interpretation by the dictation equipment. Charline Seo Nov 13, 2017 16:54
[2017-11-13] MEDS ORDERED: NORCO 7.5-3251 EACH ORAL (16:56)
[2017-11-13] MEDS ORDERED: NITROFURANTOIN100 M2 ORAL (16:56)
[2017-11-13 17:09] VITALS: BP 145/80
== END 2017-11-13 17:14 | disposition home or self-care (01) ==
LOC: EMR 17:12
DX: N83.201 Unspecified ovarian cyst, right side (principal); N39.0 Urinary tract infection, site not specified
CPT/HCPCS: 80307; 81003; 87086; 96372; 99284; J2270

== ENCOUNTER 2017-12-26 14:36 | Emergency (ER) | payer OTHER ==
[~2017-12-26] VITALS: Ht 170.2 cm; Wt 131.5 kg
[~2017-12-26 14:36] MED LIST changes: +METOPROLOL SUCC25 MG ORAL; +NITROFURANTOIN100 M2 ORAL; +NORCO 7.5-3251 EACH ORAL
[2017-12-26] MEDS ORDERED: NKM (14:45)
[2017-12-26 14:46] VITALS: BP 91/67
[2017-12-26] MEDS ORDERED: Isovue-300 100ml vial INJ PRN (15:00)
--- NOTE | 2017-12-26 15:44 | Emergency Room Report ---
History of Present Illness General Chief Complaint: Pain Source: Patient, Medical Record Present Illness HPI 27-year-old female presents to the emergency department complaining of 10 out of 10 in severity localized lower abdominal/uterine pain and tenderness to palpation. Patient is status post hysterectomy which was performed on 12/02. She had long-standing history of uterine fibroids and ovarian cysts. She states that she has had progressive pain since her surgery. Patient denies fevers she reports chills. That there was some clear discharge from the surgical wound site. She also states that a small portion is gaping. She states she is up-to-date with all vaccinations. She denies nausea, vomiting, constipation, diarrhea. Denies CP, Palpitations, LOC, AMS, dizziness, Changes in Vision, paresthesias, or a sudden severe headache.The patient states that she was seen by her ANATOMIC PATHOLOGY MANAGER who performs the procedure and that using in office ultrasound determined that she has an abscess and attempted to drain using a Q- tip according to the patient. Allergies: Coded Allergies: ACETAMINOPHEN (Verified Allergy, Severe, Anaphylaxis, 11/13/17) ASPIRIN (Unverified Allergy, Severe, Anaphylaxis, 10/16/17) METOCLOPRAMIDE (Verified Allergy, Intermediate, 10/16/17) anxiety PROCHLORPERAZINE (Verified Allergy, Unknown, 10/16/17) anxiety Patient History Past Medical History: see triage record Past Surgical History: other - fibroid removal Pertinent Family History: none Last Menstrual Period: hysterectomy on 12/02/17 Now: No Reviewed Nursing Documentation: PMH: Agreed; PSxH: Agreed Nursing Documentation-PMH Past Medical History: No History, Except For Hx Cardiac Problems: Yes - atrial septal defect cardiomegaly arrythmia Hx Gastrointestinal Problems: Yes - fibroids Review of Systems All Other Systems: negative except mentioned in HPI Physical Exam Vital Signs Date Time Temp Pulse Resp B/P (MAP) Pulse Ox O2 Delivery O2 Flow Rate FiO2 12/26/17 14:41 98.2 90 18 91/67 100 Room Air 98.2 Sp02 EP Interpretation: reviewed, normal General Appearance: no apparent distress, alert, GCS 15, non-toxic Head: normocephalic, atraumatic Eyes: bilateral eye normal inspection, bilateral eye PERRL ENT: hearing grossly normal, normal voice Neck: full range of motion Respiratory: chest non-tender, lungs clear, normal breath sounds, no wheezing, speaking full sentences Cardiovascular #1: regular rate, rhythm Gastrointestinal: normal bowel sounds, soft, tenderness - significant TTP to the lower abdomen about the site of surgical incision. wound for the most part is healed, small area on the left that is gaping Rectal: deferred Genitourinary: deferred Musculoskeletal: back normal, gait/station normal, normal range of motion, non- tender Neurologic: alert, oriented x3, responsive, motor strength/tone normal, sensory intact, speech normal, grossly normal Psychiatric: judgement/insight normal Skin: normal color, no rash, warm/dry, well hydrated Lymphatic: no adenopathy Medical Decision Making PA Attestation Dr. kyle is my supervising Physician whom patient management has been discussed with. Diagnostic Impression: Primary Impression: Postoperative pain ER Course 27-year-old female presents to the emergency department complaining of 10 out of 10 in severity localized lower abdominal/uterine pain and tenderness to palpation. Patient is status post hysterectomy which was performed on 12/02. She had long-standing history of uterine fibroids and ovarian cysts. She states that she has had progressive pain since her surgery. Patient denies fevers she reports chills. That there was some clear discharge from the surgical wound site. She also states that a small portion is gaping. She states she is up-to-date with all vaccinations. She denies nausea, vomiting, constipation, diarrhea. Denies CP, Palpitations, LOC, AMS, dizziness, Changes in Vision, paresthesias, or a sudden severe headache.The patient states that she was seen by her ANATOMIC PATHOLOGY MANAGER who performs the procedure and that using in office ultrasound determined that she has an abscess and attempted to drain using a Q- tip according to the patient. Ddx considered but are not limited to cellulitis, abscess, cystic acne, necrotizing fasciitis, Seroma, Dehiscence, hematoma or hemorrhage just to name a few. Vital signs: are WNL, pt. is afebrile H&PE are most consistent with possible post operative complication / abscess. ORDERS: -Sepsis Labs: CBC, CMP, Lactic Acid-- Unable to draw from established line. multiple attempts from multiple providers attempted to place an efficient line. PICC line is recommended. -CT imaging: Initially CT abdomen and pelvis with contrast was ordered however unable to establish needed IV access to support contrast dye. Patient has history of requiring PICC lines. At this time patient declines having a PICC line placed. CAT scan abdomen and pelvis without contrast and pelvic ultrasound are performed instead however since we discussed with this patient that we cannot entirely rule out all conditions with these types of imaging. Patient verbalizes her understanding. And continues to decline PICC line placement and to instead have CT abdomen and pelvis without contrast and pelvic ultrasound. ED INTERVENTIONS: -Morphine IV x 2 DISPOSITION: Pt. Requests to leave AMA. She states her father is dying and she needs to be there. - At this time the patient is requesting to leave AGAINST MEDICAL ADVICE. I believe that this patient has the capacity to make decisions on her own. I discussed with the patient the risks of leaving AMA. Some of these risks include delay in diagnosis and treatment, as well as worsening of symptoms, organ damage, and permanent disability or even . After discussing these risks with the patient. She continues to express Her want to leave AGAINST MEDICAL ADVICE. I encouraged the patient to return at any time, and that she will be welcome here in the emergency department to continue medical management. Labs Test 12/26/17 15:10 Urine Color Pale yellow Urine Appearance Clear Urine pH 6 (4.5-8.0) Urine Specific [place] 1.020 (1.005-1.035) Urine Protein Negative (NEGATIVE) Urine Glucose (UA) Negative (NEGATIVE) Urine Ketones Negative (NEGATIVE) Urine Occult Blood Negative (NEGATIVE) Urine Nitrite Negative (NEGATIVE) Urine Bilirubin Negative (NEGATIVE) Urine Urobilinogen Normal MG/DL (0.0-1.0) Urine Leukocyte Esterase 2+ (NEGATIVE) Urine RBC 0-2 /HPF (0 - 2) Urine WBC 2-4 /HPF (0 - 2) Urine Squamous Epithelial Cells Few /LPF (NONE/OCC) Urine Bacteria Few /HPF (NONE) CT/MRI/US Diagnostic Results CT/MRI/US Diagnostic Results : Imaging Test Ordered: CT Abdomen and Pelvis No Contrast Impression "No significant hematoma or fluid-filled collection identified, trace pelvic free fluid, suggestion of cystic lesion right ovary measuring 2 cm, no evidence of soft tissue gas no hydronephrosis or perinephric stranding. "Per official radiology report- Please see report for specific details. his results were least after patient already signed AMA. Last Vital Signs Date Time Temp Pulse Resp B/P (MAP) Pulse Ox O2 Delivery O2 Flow Rate FiO2 12/26/17 14:46 98.2 69 18 91/67 100 Room Air 98.2 Disposition: AGAINST MEDICAL ADVICE Condition: Unknown Additional Instructions: You are leaving AMA, before results of your diagnostic lab work are available. This can cause delayed diagnosis as well as treatment, and ultimately leading up to worsening of symptoms, damage to organs, permanent disability or even . You are encouraged to return to the ER at any time if you want to continue your evaluation PLEASE FOLLOW UP IMMEDIATELY WITH YOUR OBGYN/SURGEON. Charline Seo December 26, 2017 15:44
[2017-12-26] MEDS ORDERED: Morphine Sulfate 10mg/ml Inj IVP ONE (15:45)
[2017-12-26 15:53] LABS: APPEARANCE,URINE CLEAR; BILIRUBIN, URINE NEGATIVE (NEGATIVE); COLOR,URINE PALE YELLOW; GLUCOSE, URINE (UA) NEGATIVE (NEGATIVE); KETONES,URINE NEGATIVE (NEGATIVE); LEUKOCYTE ESTERASE ,URINE 2+ (NEGATIVE); NITRITE,URINE NEGATIVE (NEGATIVE); PH,URINE 6 (4.5-8.0); PROTEIN,URINE NEGATIVE (NEGATIVE); UROBILINOGEN,URINE NORMAL MG/DL (0.0-1.0)
[2017-12-26] MEDS ORDERED: DiphenhydrAMINE 50mg/ml Inj ONE (16:11)
[2017-12-26] MEDS ORDERED: DiphenhydrAMINE 50mg/ml Inj IVP ONE (16:15)
[2017-12-26] MEDS ORDERED: Heparin 2000 units/Ns 1000ml INJ ONE (16:45)
[2017-12-26] MEDS ORDERED: Lidocaine 1% Plain 30 ml INJ ONE (16:45)
[2017-12-26 17:29] VITALS: BP 91/67
[2017-12-26] MEDS ORDERED: Dyna-Hex 2% Top Sol 2oz TOPIC SCH (20:00)
--- NOTE | 2017-12-27 08:48 | Diagnostic Imaging Report ---
Indication: Abdominal pain, status post hysterectomy Technique: Spiral acquisitions obtained through the abdomen and pelvis. No oral contrast utilized, per emergency room physician request No IV contrast utilized, due to lack of IV access.. Multiplanar reconstructions were generated. Total dose length product 1019 mGycm. CTDIvol(s) 20 mGy. Dose reduction achieved using automated exposure control Comparison: 10/16/2017 Findings: The appendix is normal. There is no evidence of diverticulosis or diverticulitis. No small bowel distention. No free or loculated intraperitoneal air or fluid is evident. There is a small to moderate size hiatal hernia. The remainder of the stomach and duodenum are unremarkable. Lack of IV contrast limits assessment of the solid organs. The liver is unremarkable. The gallbladder is not visualized, presumed surgically absent. No biliary ductal dilatation. The pancreas, spleen, adrenals, kidneys are unremarkable. There is been interim hysterectomy. Increased surgical scarring is seen in the anterior abdominal wall. The left ovary is also not visualized, presumed surgically absent. The right ovary demonstrates a small follicle. The included lung bases demonstrate minimal basilar atelectasis, are otherwise clear. The bones are unremarkable. Impression: Since 10/16/2017, interim hysterectomy. No evidence of abscess, hematoma, or other complication. No acute abnormality Small to moderate-sized hiatal hernia Evidence of prior hysterectomy The CT scanner at [facility] is accredited by the [employer] and the scans are performed using protocols designed to limit radiation exposure to as low as reasonably achievable to attain images of sufficient resolution adequate for diagnostic evaluation.
== END 2017-12-26 17:30 | disposition left against medical advice (07) ==
LOC: EMR 15:14 → CANBEDREQ 17:22 → EMR 17:30
DX: G89.18 Other acute postprocedural pain (principal); R10.30 Lower abdominal pain, unspecified; Z90.710 Acquired absence of both cervix and uterus; Z88.6 Allergy status to analgesic agent; Z88.8 Allergy status to other drugs, medicaments and biological substances; K44.9 Diaphragmatic hernia without obstruction or gangrene
CPT/HCPCS: 74176; 81003; 96374; 96375; 99284; J1200; J1644; J2270

== ENCOUNTER 2018-01-04 09:24 | Emergency (ER) | payer OTHER ==
[~2018-01-04] VITALS: Ht 170.2 cm; Wt 131.5 kg
[~2018-01-04 09:24] MED LIST changes: +NKM
[2018-01-04 09:41] VITALS: BP 112/72
--- NOTE | 2018-01-04 09:48 | Emergency Room Report ---
History of Present Illness General Chief Complaint: Skin Rash/Abscess Source: Patient Present Illness HPI Patient is a 27-year-old female who presented after increased the drainage from her surgical site. Patient was having hysterectomy at [facility]. The patient reports having increased abdominal discomfort as well as drainage from her wound.The patient was having subjective fevers.The patient reports having vomiting and denies recent bowel movements Allergies: Coded Allergies: ACETAMINOPHEN (Verified Allergy, Severe, Anaphylaxis, 11/13/17) ASPIRIN (Unverified Allergy, Severe, Anaphylaxis, 10/16/17) METOCLOPRAMIDE (Verified Allergy, Intermediate, 10/16/17) anxiety PROCHLORPERAZINE (Verified Allergy, Unknown, 10/16/17) anxiety Patient History Past Medical History: see triage record Past Surgical History: hysterectomy Now: No - complete hysterectomy 2017 Reviewed Nursing Documentation: PMH: Agreed; PSxH: Agreed Nursing Documentation-PMH Past Medical History: No History, Except For Hx Cardiac Problems: Yes - atrial septal defect cardiomegaly arrythmia Hx Gastrointestinal Problems: Yes - fibroids Review of Systems All Other Systems: limited Physical Exam Vital Signs Date Time Temp Pulse Resp B/P (MAP) Pulse Ox O2 Delivery O2 Flow Rate FiO2 01/04/18 09:31 98.0 74 18 112/72 100 Room Air 98.1 Sp02 EP Interpretation: reviewed, normal General Appearance: normal inspection, well appearing, no apparent distress, alert, GCS 15, non-toxic Head: atraumatic ENT: normal ENT inspection, hearing grossly normal, normal voice Neck: normal inspection, full range of motion, supple, no bony tend Respiratory: normal inspection, lungs clear, normal breath sounds, no respiratory distress, no retraction, no wheezing Cardiovascular #1: regular rate, rhythm, no edema Gastrointestinal: normal inspection, normal bowel sounds, non tender, soft, no guarding, no hernia Genitourinary: no CVA tenderness Musculoskeletal: normal inspection, back normal, normal range of motion Neurologic: normal inspection, alert, oriented x3, responsive, infant childcare provider III-XII nml as tested, speech normal Psychiatric: normal inspection, judgement/insight normal, mood/affect normal Skin: normal inspection, normal color, no rash Medical Decision Making Diagnostic Impression: Primary Impression: Wound infection after surgery Additional Impressions: S/P hysterectomy Anemia ER Course Patient presented for abdominal pain. Differential diagnoses included ischemic bowel, intra-abdominal abscess, appendicitis, perforated viscus, abdominal aortic aneurysm, inferior myocardial infarction, viral gastroenteritis. The [facility] database was reviewed for the patient's prior prescription history. The patient was noted to have multiple prescriptions for Tylenol-containing medications and so I doubt that the patient is actually allergic to Tylenol. The patient was noted to have recently filled the [place] prescription. The patient's surgical wound does not appear to be cellulitic. The CT imaging had previously been performed at this hospital approximately one week ago and showed no evidence of abdominal abscess. The patient was given IV Ancef. As well as IV fluids. The patient was noted to have a normal white blood count.The patient was awaiting results of her ultrasound. The patient stated she had to leave due to family emergency. This happened on prior visit as well. The patient was prescribed meducation for yeast infection as well as oral antibiotics. Labs Test 01/04/18 10:10 01/04/18 10:45 Urine Opiates Screen Negative (NEGATIVE) Urine Barbiturates Screen Negative (NEGATIVE) Phencyclidine (PCP) Screen Negative (NEGATIVE) Urine Amphetamines Screen Negative (NEGATIVE) Urine Benzodiazepines Screen Negative (NEGATIVE) Urine Cocaine Screen Negative (NEGATIVE) Urine Marijuana (THC) Screen Negative (NEGATIVE) White Blood Count 5.0 K/UL (4.8-10.8) Red Blood Count 4.02 M/UL (4.20-5.40) Hemoglobin 8.5 G/DL (12.0-16.0) Hematocrit 29.0 % (37.0-47.0) Mean Corpuscular Volume 72 FL (80-99) Mean Corpuscular Hemoglobin 21.1 PG (27.0-31.0) Mean Corpuscular Hemoglobin Concent 29.2 G/DL (32.0-36.0) Red Cell Distribution Width 15.9 % (11.6-14.8) Platelet Count 339 K/UL (150-450) Mean Platelet Volume 5.8 FL (6.5-10.1) Neutrophils (%) (Auto) 49.2 % (45.0-75.0) Lymphocytes (%) (Auto) 36.0 % (20.0-45.0) Monocytes (%) (Auto) 13.4 % (1.0-10.0) Eosinophils (%) (Auto) 0.5 % (0.0-3.0) Basophils (%) (Auto) 0.9 % (0.0-2.0) Last Vital Signs Date Time Temp Pulse Resp B/P (MAP) Pulse Ox O2 Delivery O2 Flow Rate FiO2 01/04/18 09:31 98.0 74 18 112/72 100 Room Air 98.1 Status: improved Disposition: HOME, SELF-CARE Condition: Stable Scripts Ferrous Sulfate* (FERROUS SULFATE*) 325 Mg Tablet 325 MG ORAL DAILY, #30 TAB 0 Refills Prov: Wilfred Millan MD 01/04/18 Clotrimazole* (LOTRIMIN*) 15 Gm Cream..g. 1 APPLIC TOPIC TWICE A DAY, #30 GM Prov: Wilfred Millan MD 01/04/18 Cephalexin* (KEFLEX*) 500 Mg Capsule 500 MG ORAL EVERY 6 HOURS, #28 CAP Prov: Wilfred Millan MD 01/04/18 Wilfred Millan MD Jan 04, 2018 09:48
[2018-01-04] MEDS ORDERED: Sodium Chloride 500ML 500 ML IV ONE (10:15)
[2018-01-04] MEDS ORDERED: ceFAZolin sod 1 GM in NS 55 ML IVPB ONE (10:15)
[2018-01-04 10:50] LABS: APPEARANCE,URINE CLEAR; BILIRUBIN, URINE NEGATIVE (NEGATIVE); GLUCOSE, URINE (UA) NEGATIVE (NEGATIVE); KETONES,URINE NEGATIVE (NEGATIVE); LEUKOCYTE ESTERASE ,URINE 3+ (NEGATIVE); NITRITE,URINE NEGATIVE (NEGATIVE); PH,URINE 5 (4.5-8.0); PROTEIN,URINE 2+ (NEGATIVE); UROBILINOGEN,URINE NORMAL MG/DL (0.0-1.0)
[2018-01-04 10:56] LABS: BASOPHILS % (AUTO) 0.9 % (0.0-2.0); EOSINOPHILS % (AUTO) 0.5 % (0.0-3.0); HEMOGLOBIN 8.5 G/DL (12.0-16.0); MEAN CORPUSCULAR VOLUME 72 FL (80-99); MONOCYTES % (AUTO) 13.4 % (1.0-10.0); NEUTROPHILS % (AUTO) 49.2 % (45.0-75.0); PLATELET COUNT 339 K/UL (150-450); RED BLOOD COUNT 4.02 M/UL (4.20-5.40); RED CELL DISTRIBUTION WIDTH 15.9 % (11.6-14.8)
[2018-01-04 11:05] LABS: INR 0.9 (0.9-1.1)
[2018-01-04 11:06] LABS: ANION GAP 10 mmol/L (5-15); BLOOD UREA NITROGEN 9 mg/dL (7-18); CALCIUM 8.7 MG/DL (8.5-10.1); CARBON DIOXIDE 24 MMOL/L (21-32); CHLORIDE 104 MMOL/L (98-107); CREATININE 0.9 MG/DL (0.55-1.30); POTASSIUM 3.8 MMOL/L (3.5-5.1); SODIUM 138 MMOL/L (136-145)
[2018-01-04 11:11] LABS: ALANINE AMINOTRANSFERASE 20 U/L (12-78); ALBUMIN 3.4 G/DL (3.4-5.0); ALBUMIN/GLOBULIN RATIO 0.8 (1.0-2.7); ALKALINE PHOSPHATASE 67 U/L (46-116); ASPARTATE AMINO TRANSFERASE 18 U/L (15-37); BILIRUBIN,TOTAL 0.2 MG/DL (0.2-1.0)
[2018-01-04] MEDS ORDERED: CEPHALEXIN500 MG ORAL (11:11)
[2018-01-04] MEDS ORDERED: CLOTRIMAZOLE15 GM TOPIC (11:11)
[2018-01-04 11:13] LABS: COLOR,URINE YELLOW
[2018-01-04] MEDS ORDERED: FERROUS SULFAT325 MG ORAL (11:14)
[2018-01-04] MEDS ORDERED: traMADol 50mg tab ORAL ONE (11:15)
[2018-01-04] MEDS ORDERED: Fluconazole 100mg tab ORAL ONE (11:30)
[2018-01-04 12:10] VITALS: BP 117/80
--- NOTE | 2018-01-04 12:28 | Diagnostic Imaging Report ---
EXAM: US Abdomen Complete CLINICAL HISTORY: PAIN TECHNIQUE: Real-time ultrasound of the abdomen (complete) with image documentation. COMPARISON: CT abdomen and pelvis 12/26/17 FINDINGS: Liver: Dense liver may be fatty. Liver measures 16.8 cm. No intrahepatic bile duct dilation. Gallbladder: Gallbladder absent. No biliary obstruction. Common bile duct: Normal, 1.7 mm Pancreas: Unremarkable as visualized. Kidneys: Right kidney measures 10.3 x 4.5 x 4.9 cm. Left kidney measures 10.5 x 5.1 x 4.8 cm. No stones. No hydronephrosis. Spleen: Spleen 10.8 cm. Aorta: Unremarkable. No aneurysm. Inferior vena cava: Unremarkable. Free fluid: Uterus absent. No fluid collections in the pelvis. IMPRESSION: 1. Dense liver may be fatty. 2. Gallbladder absent. No biliary obstruction. 3. Uterus absent. No fluid collections in the pelvis.
--- NOTE | 2018-01-06 16:59 | Diagnostic Imaging Report ---
Indication: Abdominal pain Technique: Supine view of the abdomen Comparison: 10/13/2017 Findings: Bowel gas pattern is unremarkable. No unusual masses or calcifications. Impression: Negative
== END 2018-01-04 12:10 | disposition home or self-care (01) ==
LOC: EMR 09:44
DX: T81.4XXA Infection following a procedure, initial encounter (principal); Z90.710 Acquired absence of both cervix and uterus; D64.9 Anemia, unspecified; Z88.6 Allergy status to analgesic agent; Z88.8 Allergy status to other drugs, medicaments and biological substances
CPT/HCPCS: 36415; 74018; 76700; 80053; 80307; 81003; 83690; 85025; 85610; 85730; 87070; 87086; 87181; 87205; 96365; 96375; 99284; J0690; J2405; J7040; 96360

== ENCOUNTER 2018-01-30 10:39 | Inpatient (IN) | payer OTHER ==
[~2018-01-30] VITALS: Ht 170.2 cm; Wt 127.0 kg
[~2018-01-30 10:39] MED LIST changes: +CEPHALEXIN500 MG ORAL; +CLOTRIMAZOLE15 GM TOPIC; +FERROUS SULFAT325 MG ORAL
[2018-01-30 11:20] VITALS: BP 152/96
[2018-01-30] MEDS ORDERED: Lidocaine 1% Plain 30 ml INJ ONE (11:30)
[2018-01-30] MEDS ORDERED: Heparin 2000 units/Ns 1000ml INJ ONE (11:30)
[2018-01-30 11:49] LABS: APPEARANCE,URINE CLEAR; BILIRUBIN, URINE NEGATIVE (NEGATIVE); COLOR,URINE PALE YELLOW; GLUCOSE, URINE (UA) NEGATIVE (NEGATIVE); KETONES,URINE NEGATIVE (NEGATIVE); LEUKOCYTE ESTERASE ,URINE 1+ (NEGATIVE); NITRITE,URINE NEGATIVE (NEGATIVE); PH,URINE 7 (4.5-8.0); PROTEIN,URINE NEGATIVE (NEGATIVE); UROBILINOGEN,URINE NORMAL MG/DL (0.0-1.0)
--- NOTE | 2018-01-30 11:57 | Consultation ---
History of Present Illness General Date patient seen: Jan 30, 2018 Chief Complaint: Abdominal Pain Present Illness HPI 27 year old female presents with abdominal pain and worsening drainage from prior surgical wound. As per patient, she has a history of painful fibroids. Initially had myomectomy but with recurrence. After decided to have hysterectomy in November 2017. Surgery complicated by wound infection requiring wound opening. She has also been placed on oral abx trail prior as well. After last wound revision was doing well recently noted pain and discomfort from wound again while on a trip in [place]. went to ED for evaluation and had ultrasound which demonstrated fluid collection requiring drainage. Was told to have evaluation when home in [place] and came to ED today for evaluation because worsening pain and persistent wound with drainage. Surgery called to evaluate wound and abdominal pain. patient seen, chart reviewed, patient examined. states that drainage initially purulent and foul smelling but currently more serous. subjective fevers. Allergies: Coded Allergies: ACETAMINOPHEN (Verified Allergy, Severe, Anaphylaxis, 11/13/17) ASPIRIN (Unverified Allergy, Severe, Anaphylaxis, 10/16/17) METOCLOPRAMIDE (Verified Allergy, Intermediate, 10/16/17) anxiety PROCHLORPERAZINE (Verified Allergy, Unknown, 10/16/17) anxiety Medication History Scheduled Cephalexin* (Keflex*), 500 MG ORAL EVERY 6 HOURS Clotrimazole* (Lotrimin*), 1 APPLIC TOPIC TWICE A DAY Ferrous Sulfate* (Ferrous Sulfate*), 325 MG ORAL DAILY Furosemide* (Lasix*), 20 MG ORAL DAILY, (Reported) Lisinopril* (Lisinopril*), 2.5 MG ORAL DAILY, (Reported) Metoprolol Succinate* (Metoprolol Succinate*), 25 MG ORAL DAILY, (Reported) Nitrofurantoin Monohyd/M-Cryst* (Macrobid 100 Mg*), 100 MG ORAL EVERY 12 HOURS No Known Medications* (NKM - No Known Medications*), 0 ., (Reported) Scheduled PRN Hydrocodone Bit/Acetaminophen 5-325* ([place] 5-325*), 1 TAB ORAL Q6H PRN for For Pain Hydrocodone Bit/Acetaminophen 7.5-325* ([place] 7.5-325*), 1 TAB ORAL Q8HR PRN for For Pain Patient History History Provided By: Patient, Medical Record, PMD Healthcare decision maker Resuscitation status Advanced Directive on File Past Medical/Surgical History Past Medical/Surgical History: (1) Occluded PICC line (2) Abdominal pain (3) Urinary tract infection (4) Ovarian cyst (5) Anemia affecting 10th (6) Anemia (7) Wound infection after surgery Review of Systems Constitutional: Denies: no symptoms, see HPI, chills, sweats, fever, malaise, weakness, other Eye: Denies: no symptoms, see HPI, eye pain, blurred vision, tearing, double vision, nose pain, nose congestion, acuity changes, discharge, other ENT: Denies: no symptoms, see HPI, ear pain, ear discharge, nose pain, nose congestion, throat pain, throat swelling, mouth pain, hearing loss, nasal discharge, other Respiratory: Denies: no symptoms, see HPI, cough, orthopnea, shortness of breath, stridor, wheezing, MACKEY, sputum, other Cardiovascular: Denies: no symptoms, see HPI, chest pain, edema, palpitations, syncope, PND, other Gastrointestinal: Reports: abdominal pain Genitourinary: Denies: no symptoms, see HPI, discharge, dysuria, frequency, hematuria, pain, retention, incontinence, urgency, vag bleed/dc, other Musculoskeletal: Denies: no symptoms, see HPI, back pain, gout, joint pain, joint swelling, muscle pain, muscle stiffness, other Skin: Denies: no symptoms, see HPI, rash, change in color, change in hair/nails , dryness, lesions, other Psychiatric: Denies: no symptoms, see HPI, prior hx, anxiety, depressed feelings, emotional problems, SI, HI, hallucinations, other Neurological: Denies: no symptoms, see HPI, headache, numbness, paresthesia, seizure, tingling, tremors, focal weakness, syncope, dizziness, other Endocrine: Denies: no symptoms, see HPI, excessive sweating, flushing, intolerance to temperature, increased thirst, increased urine, unexplained weight loss, other Hematologic/Lymphatic: Denies: no symptoms, see HPI, anemia, blood clots, easy bleeding, easy bruising, swollen glands, diathesis, other Physical Exam General Appearance: WD/WN, no apparent distress HEENT: mucous membranes moist, PERRL Neck: normal inspection Respiratory/Chest: normal breath sounds, no respiratory distress, no accessory muscle use Cardiovascular/Chest: normal peripheral pulses, normal rate Abdomen: normal bowel sounds, non tender, soft, no organomegaly, no mass, other - obese with lower pelvic prior incision. on the right lateral aspect of the incision there is a 2-3cm opening with serous drainage. tender, warm, no fluctuance. Extremities: normal range of motion Skin Exam: warm/dry Neurologic: alert, oriented x 3, responsive Last 24 Hour Vital Signs Date Time Temp Pulse Resp B/P (MAP) Pulse Ox O2 Delivery O2 Flow Rate FiO2 01/30/18 10:52 98.5 88 19 152/96 97 Room Air 98.4 Laboratory Tests Test 01/30/18 11:20 Urine Color Pending Urine Appearance Pending Urine pH Pending Urine Specific [place] Pending Urine Protein Pending Urine Glucose (UA) Pending Urine Ketones Pending Urine Occult Blood Pending Urine Nitrite Pending Urine Bilirubin Pending Urine Urobilinogen Pending Urine Leukocyte Esterase Pending Height (Feet): 5 Height (Inches): 7.00 Weight (Pounds): 290 Medications Current Medications Medications (Trade) Dose Ordered Sig/Shweta Route PRN Reason Start Time Stop Time Status Last Admin Dose Admin Chlorhexidine Gluconate (Teodora-Hex 2%) 1 applic DAILY@2000 TOPIC 01/30/18 20:00 03/01/18 19:59 Iopamidol (Isovue-300 100ml) 100 ml NOW PRN INJ Radiology Procedure 01/30/18 12:00 Sodium Chloride 1,000 ml @ 999 mls/hr Q1H1M IV 01/30/18 11:16 01/30/18 12:16 Assessment/Plan Problem List: (1) Wound infection after surgery Assessment & Plan: 27F with history of surgical wound infection after hysterectomy continues to have pain and drainage from wound. persistent open area noted on right lateral wound. afebrile, HD stable, labs pending given patients size and history of wound currently difficult to assess severity based on clinical exam. -CT A/P to evaluate severity of infection, possible fistula, possible underlying deep abscess. -labs pending. -will follow thank you for this consultatio ICD Codes: T81.4XXA - Infection following a procedure, initial encounter SNOMED: [id number], [id number] Status: stable Gus Scott Jan 30, 2018 11:57
[2018-01-30] MEDS ORDERED: Morphine Sulfate 2mg/ml Inj IM ONE ×2 (12:00→13:15)
[2018-01-30] MEDS ORDERED: Isovue-300 100ml vial INJ PRN (12:00)
[2018-01-30 12:32] LABS: BASOPHILS % (AUTO) 0.7 % (0.0-2.0); EOSINOPHILS % (AUTO) 1.3 % (0.0-3.0); HEMATOCRIT 28.6 % (37.0-47.0); HEMOGLOBIN 8.3 G/DL (12.0-16.0); MEAN CORPUSCULAR VOLUME 72 FL (80-99); MONOCYTES % (AUTO) 8.1 % (1.0-10.0); NEUTROPHILS % (AUTO) 61.9 % (45.0-75.0); PLATELET COUNT 442 K/UL (150-450); RED BLOOD COUNT 3.96 M/UL (4.20-5.40); RED CELL DISTRIBUTION WIDTH 15.7 % (11.6-14.8)
[2018-01-30 12:44] LABS: ANION GAP 7 mmol/L (5-15); BLOOD UREA NITROGEN 6 mg/dL (7-18); CALCIUM 8.7 MG/DL (8.5-10.1); CARBON DIOXIDE 28 MMOL/L (21-32); CHLORIDE 104 MMOL/L (98-107); CREATININE 1.1 MG/DL (0.55-1.30); POTASSIUM 3.4 MMOL/L (3.5-5.1); SODIUM 139 MMOL/L (136-145)
[2018-01-30 12:46] LABS: ALANINE AMINOTRANSFERASE 21 U/L (12-78); ALBUMIN 3.2 G/DL (3.4-5.0); ALBUMIN/GLOBULIN RATIO 0.7 (1.0-2.7); ALKALINE PHOSPHATASE 66 U/L (46-116); ASPARTATE AMINO TRANSFERASE 15 U/L (15-37); BILIRUBIN,TOTAL 0.1 MG/DL (0.2-1.0)
[2018-01-30] MEDS ORDERED: DiphenhydrAMINE 50mg/ml Inj ONE (13:59)
[2018-01-30] MEDS ORDERED: DiphenhydrAMINE 50mg/ml Inj IVP ONE (14:15)
--- NOTE | 2018-01-30 14:46 | Diagnostic Imaging Report ---
Indication: Abdominal pain Technique: Continuous helical transaxial imaging of the abdomen and pelvis was obtained from the lung bases to the pubic symphysis during intravenous contrast administration. Coronal 2-D reformats were also obtained. Study obtained in a Siemens sensation [address] Automatic Exposure Control was utilized. Total Dose length Product (DLP): 1078.[address] Dose Index Volume (CTDIvol): 19.75 mGy Comparison: None Findings: Lung bases are clear. There is a small hiatal hernia present. Pancreas, liver, spleen appear unremarkable. There is no nephrolithiasis or hydronephrosis appreciated. Gallbladder is absent. No evidence of bowel obstruction. Moderate fecal retention in the rectum which is slightly distended. Urinary bladder is nondistended. Uterus is absent. The right ovary is probably present. The left ovary is not seen. Appendix is not definitely seen. There are no secondary signs of appendicitis. Soft tissue stranding of the low anterior abdominal wall noted. This is likely postsurgical in nature. Area of low attenuation probably postsurgical phlegmon or possibly developing abscess or other postoperative fluid collection such as seroma measuring about 9 x 2 cm.. Suggest follow-up if warranted clinically. No evidence of intra-abdominal abscess. IMPRESSION: Small accumulation of fluid or phlegmon versus abscess just anterior to the lower part of the abdominal wall in the area of prior surgery. Follow-up suggested. Postsurgical changes in the low anterior abdominal wall. Apparent hysterectomy. Apparent cholecystectomy. Small hiatal hernia. Moderate fecal retention in the rectum. The CT scanner at [facility] is accredited by the [employer] and the scans are performed using dose optimization techniques as appropriate to a performed exam including Automatic Exposure control.
--- NOTE | 2018-01-30 14:59 | Emergency Room Report ---
History of Present Illness General Chief Complaint: Abdominal Pain Source: Patient, Medical Record, PMD Present Illness HPI 27-year-old female presents to ED complaining of abdominal pain. States that she had hysterectomy done in November at [facility]. States she has had persistent problems since the surgery. Patient had surgical site drainage done at [facility] in [place] last week. That she is still noting drainage and pain. Pain is 10 out of 10, sharp, nonradiating. Denies fevers or chills. Notes nausea, denies vomiting. Denies chest pain or shortness of breath. No other aggravating relieving factors. Denies any other associated symptoms Allergies: Coded Allergies: ACETAMINOPHEN (Verified Allergy, Severe, Anaphylaxis, 11/13/17) ASPIRIN (Unverified Allergy, Severe, Anaphylaxis, 10/16/17) METOCLOPRAMIDE (Verified Allergy, Intermediate, 10/16/17) anxiety PROCHLORPERAZINE (Verified Allergy, Unknown, 10/16/17) anxiety Patient History Past Medical History: HTN Past Surgical History: hysterectomy Pertinent Family History: none Social History: Denies: smoking, alcohol use, drug use Last Menstrual Period: Hysterectomy 11/2017 Now: No Immunizations: UTD Reviewed Nursing Documentation: PMH: Agreed; PSxH: Agreed Nursing Documentation-PMH Hx Cardiac Problems: Yes - atrial septal defect cardiomegaly arrythmia Hx Gastrointestinal Problems: Yes - fibroids, hysterectomy 11/20 Review of Systems All Other Systems: negative except mentioned in HPI Physical Exam Vital Signs Date Time Temp Pulse Resp B/P (MAP) Pulse Ox O2 Delivery O2 Flow Rate FiO2 01/30/18 10:52 98.5 88 19 152/96 97 Room Air 98.4 Sp02 EP Interpretation: reviewed, normal General Appearance: no apparent distress, alert, GCS 15, non-toxic, obese Head: normocephalic, atraumatic Eyes: bilateral eye normal inspection, bilateral eye PERRL ENT: hearing grossly normal, normal pharynx, no angioedema, normal voice Neck: full range of motion, supple/symm/no masses Respiratory: chest non-tender, lungs clear, normal breath sounds, speaking full sentences Cardiovascular #1: regular rate, rhythm, no edema Cardiovascular #2: 2+ carotid (R), 2+ carotid (L), 2+ radial (R), 2+ radial (L) , 2+ dorsalis pedis (R), 2+ dorsalis pedis (L) Gastrointestinal: normal bowel sounds, soft, non-distended, no guarding, no rebound, other - discharge from lower abdomen. no guarding or rebound Rectal: deferred Genitourinary: normal inspection, no CVA tenderness Musculoskeletal: back normal, gait/station normal, normal range of motion, non- tender Neurologic: alert, oriented x3, responsive, motor strength/tone normal, sensory intact, speech normal Psychiatric: judgement/insight normal, memory normal, mood/affect normal, no suicidal/homicidal ideation Reflexes: 3+ bicep (R), 3+ bicep (L), 3+ tricep (R), 3+ tricep (L), 3+ knee (R) , 3+ knee (L) Skin: normal color, no rash, warm/dry, well hydrated Lymphatic: no adenopathy Medical Decision Making Diagnostic Impression: Primary Impression: Abdominal wall abscess at site of surgical wound Additional Impression: S/P hysterectomy ER Course Hospital Course 27 yo F presents to ED c/o surgical site drainage. h/o hysterectomy Differential diagnoses include:cellulitis, abscess, surgical site infection Clinical course Patient placed on stretcher. athletic monitor. After initial history and physical I ordered labs, IV fluids, UA, pain medication and CT scan Labs - no leukocytosis, Hb/Hct stable, electrolytes ok, lactate ok CT abdomen and pelvis - 9x2cm abscess in lower abdminal wall in area of surgery Discussed findings with Dr. Scott; he will consult on the case. evaluated patient at bedside Case discussed with Dr. Christian and he agreed to accept the patient to his service for further care and support abx given I feel this is a highly complex case requiring extensive working including EKG/ Rhythm strip, Xray/CT/US, Blood/urine lab work, repeat exams while in ED, and administration of strong opiates/narcotics for pain control, admission to hospital or close patient follow up. Diagnosis - abdominal wall abscess at site of surgical wound, s/p hysterectomy Patient admitted to floor in serious condition Labs Test 01/30/18 11:20 01/30/18 12:10 Urine Color Pale yellow Urine Appearance Clear Urine pH 7 (4.5-8.0) Urine Specific [place] 1.015 (1.005-1.035) Urine Protein Negative (NEGATIVE) Urine Glucose (UA) Negative (NEGATIVE) Urine Ketones Negative (NEGATIVE) Urine Occult Blood Negative (NEGATIVE) Urine Nitrite Negative (NEGATIVE) Urine Bilirubin Negative (NEGATIVE) Urine Urobilinogen Normal MG/DL (0.0-1.0) Urine Leukocyte Esterase 1+ (NEGATIVE) Urine RBC 2-4 /HPF (0 - 2) Urine WBC 2-4 /HPF (0 - 2) Urine Squamous Epithelial Cells Few /LPF (NONE/OCC) Urine Bacteria Occasional /HPF (NONE) Urine HCG, Qualitative Negative (NEGATIVE) White Blood Count 5.0 K/UL (4.8-10.8) Red Blood Count 3.96 M/UL (4.20-5.40) Hemoglobin 8.3 G/DL (12.0-16.0) Hematocrit 28.6 % (37.0-47.0) Mean Corpuscular Volume 72 FL (80-99) Mean Corpuscular Hemoglobin 21.1 PG (27.0-31.0) Mean Corpuscular Hemoglobin Concent 29.1 G/DL (32.0-36.0) Red Cell Distribution Width 15.7 % (11.6-14.8) Platelet Count 442 K/UL (150-450) Mean Platelet Volume 5.7 FL (6.5-10.1) Neutrophils (%) (Auto) 61.9 % (45.0-75.0) Lymphocytes (%) (Auto) 28.0 % (20.0-45.0) Monocytes (%) (Auto) 8.1 % (1.0-10.0) Eosinophils (%) (Auto) 1.3 % (0.0-3.0) Basophils (%) (Auto) 0.7 % (0.0-2.0) Sodium Level 139 MMOL/L (136-145) Potassium Level 3.4 MMOL/L (3.5-5.1) Chloride Level 104 MMOL/L (98-107) Carbon Dioxide Level 28 MMOL/L (21-32) Anion Gap 7 mmol/L (5-15) Blood Urea Nitrogen 6 mg/dL (7-18) Creatinine 1.1 MG/DL (0.55-1.30) Estimat Glomerular Filtration Rate > 60 mL/min (>60) Glucose Level 111 MG/DL (74-106) Lactic Acid Level 1.50 mmol/L (0.4-2.0) Calcium Level 8.7 MG/DL (8.5-10.1) Total Bilirubin 0.1 MG/DL (0.2-1.0) Aspartate Amino Transf (AST/SGOT) 15 U/L (15-37) Alanine Aminotransferase (ALT/SGPT) 21 U/L (12-78) Alkaline Phosphatase 66 U/L (46-116) Total Protein 7.6 G/DL (6.4-8.2) Albumin 3.2 G/DL (3.4-5.0) Globulin 4.4 g/dL Albumin/Globulin Ratio 0.7 (1.0-2.7) CT/MRI/US Diagnostic Results CT/MRI/US Diagnostic Results : Imaging Test Ordered: CT A/P Impression 9x2cm abscess to lower abdominal wall in area of prior surgery Last Vital Signs Date Time Temp Pulse Resp B/P (MAP) Pulse Ox O2 Delivery O2 Flow Rate FiO2 01/30/18 13:40 98.5 01/30/18 10:52 88 19 152/96 97 Room Air Status: improved Disposition: ADMITTED INPATIENT Condition: Serious Referrals: [facility],REFERRING (PCP) Damian Roberts MD Jan 30, 2018 14:59
[2018-01-30] MEDS ORDERED: Piperacillin/Tazobactam 3.375 GM in NS 110 ML IVPB ONE (15:00)
[2018-01-30] MEDS ORDERED: Morphine Sulfate 10mg/ml Inj IVP ONE (15:00)
[2018-01-30 17:00] VITALS: BP 113/72
[2018-01-30] MEDS: Morphine Sulfate 4mg/ml Inj IVP PRN ×2 (17:54→22:32)
[2018-01-30] MEDS: DiphenhydrAMINE 50mg/ml Inj IVP PRN ×2 (18:39→22:32)
[2018-01-30 20:04] VITALS: BP 114/69
[2018-01-30] MEDS: Dyna-Hex 2% Top Sol 2oz TOPIC SCH (20:19)
--- NOTE | 2018-01-30 20:59 | Consultation ---
Consult Note Consult Note asked to eval for abnormal lytes Assessment/Plan (1) Occluded PICC line (2) Abdominal pain (3) Urinary tract infection (4) Ovarian cyst (5) Anemia affecting 10th (6) Anemia (7) Wound infection after surgery (8) Obesity KCL PO and IV Anemia cody antibiotics RC CABRERA Jan 30, 2018 20:59
[2018-01-30] MEDS ORDERED: Vancomycin 1.5 GM/D5W 250ML IVPB SCH (22:00)
[2018-01-30] MEDS: Potassium Chloride 10 MEQ in D5 1/2NS 1,000 ML IV SCH (22:31)
[2018-01-31] VITALS (13 sets, daily range): BP systolic 97–139; BP diastolic 50–82
[2018-01-31] MEDS: DiphenhydrAMINE 50mg/ml Inj IVP PRN ×5 (02:49→19:53)
[2018-01-31] MEDS: Morphine Sulfate 4mg/ml Inj IVP PRN ×7 (02:49→23:02)
[2018-01-31] MEDS: Piperacillin/Tazobactam 3.375 GM in NS 110 ML IVPB SCH ×3 (05:46→23:13)
[2018-01-31] MEDS: Vancomycin 1gm/D5W 275ml IVPB SCH ×4 (05:47→13:16)
[2018-01-31 07:46] LABS: BASOPHILS % (AUTO) 1.7 % (0.0-2.0); EOSINOPHILS % (AUTO) 1.9 % (0.0-3.0); HEMATOCRIT 29.2 % (37.0-47.0); HEMOGLOBIN 8.5 G/DL (12.0-16.0); LYMPHOCYTES % (AUTO) 34.5 % (20.0-45.0); MEAN CORPUSCULAR VOLUME 72 FL (80-99); MONOCYTES % (AUTO) 9.6 % (1.0-10.0); NEUTROPHILS % (AUTO) 52.3 % (45.0-75.0); PLATELET COUNT 329 K/UL (150-450); RED BLOOD COUNT 4.05 M/UL (4.20-5.40)
[2018-01-31 08:07] LABS: GAMMA GLUTAMYL TRANSPEPTIDASE 29 U/L (5-85); PHOSPHORUS 4.7 MG/DL (2.5-4.9)
--- NOTE | 2018-01-31 08:09 | Consultation ---
Consult Note Consult Note [id number] Job ID Ho Canchola MD Jan 31, 2018 08:09
[2018-01-31 08:12] LABS: ALANINE AMINOTRANSFERASE 18 U/L (12-78); ALBUMIN 3.1 G/DL (3.4-5.0); ALBUMIN/GLOBULIN RATIO 0.7 (1.0-2.7); ALKALINE PHOSPHATASE 71 U/L (46-116); ANION GAP 9 mmol/L (5-15); ASPARTATE AMINO TRANSFERASE 12 U/L (15-37); BILIRUBIN,TOTAL 0.1 MG/DL (0.2-1.0); BLOOD UREA NITROGEN 9 mg/dL (7-18); CALCIUM 8.5 MG/DL (8.5-10.1); CARBON DIOXIDE 26 MMOL/L (21-32); CHLORIDE 103 MMOL/L (98-107); CHOLESTEROL 142 MG/DL (< 200); CREATININE 1.1 MG/DL (0.55-1.30); FERRITIN 17 NG/ML (8-388); HDL CHOLESTEROL 63 MG/DL (40-60); POTASSIUM 3.6 MMOL/L (3.5-5.1); SODIUM 138 MMOL/L (136-145); TRIGLYCERIDES 95 MG/DL (30-150)
[2018-01-31] MEDS ORDERED: NS Irrig 1000ml ONE (09:00)
[2018-01-31] MEDS ORDERED: LR 1000ml ONE (09:00)
[2018-01-31] MEDS ORDERED: Sterile Water Irrig 1000ml IRRIG ONE (09:00)
[2018-01-31 09:12] LABS: % IRON SATURATION 8 % (15-50); IRON 25 ug/dL (50-175); TOTAL IRON BINDING CAPACITY 323 ug/dL (250-450)
--- NOTE | 2018-01-31 11:32 | Pre-Procedure Note/Attestation ---
Pre-Procedure Note/Attestation Complete Prior to Procedure Planned Procedure: not applicable Procedure Narrative: incision and drainage of abdominal wall abscess with debridement Indications for Procedure Pre-Operative Diagnosis: abdominal wall abscess Attestation I attest that I discussed the nature of the procedure; its benefits; risks and complications; and alternatives (and the risks and benefits of such alternatives ), prior to the procedure, with the patient (or the patient's legal direct customer service representative). I attest that, if there was a reasonable possibility of needing a blood transfusion, the patient (or the patient's legal direct customer service representative) was given the [facility] standardized written summary, pursuant to the [place] Blood Safety Act ([place] Health and Safety Code # 1645, as amended). I attest that I re-evaluated the patient just prior to the surgery and that there has been no change in the patient's H&P, except as documented below: Gus Scott Jan 31, 2018 11:32
[2018-01-31] MEDS: Potassium Chloride 10 MEQ in D5 1/2NS 1,000 ML IV SCH (13:16)
--- NOTE | 2018-01-31 13:42 | Nephrology Progress Note ---
Assessment/Plan Problem List: (1) Anemia (2) Abdominal wall abscess at site of surgical wound (3) Hypokalemia Plan IV Iron PO Folate SQ B12 PO KCL stable from renal stand Subjective ROS Limited/Unobtainable: No Constitutional: Reports: malaise Objective Objective Last 24 Hour Vital Signs Date Time Temp Pulse Resp B/P (MAP) Pulse Ox O2 Delivery O2 Flow Rate FiO2 01/31/18 12:00 98.4 70 21 117/71 100 Room Air 98.4 01/31/18 08:00 98.3 75 21 121/77 99 Room Air 98.3 01/31/18 04:13 98.3 74 20 112/69 96 Room Air 98.3 01/31/18 00:32 96.6 81 19 108/71 97 Room Air 96.6 01/30/18 20:04 97.9 83 22 114/69 98 Room Air 97.9 01/30/18 17:00 98.0 75 18 113/72 99 Room Air 98.0 01/30/18 16:30 98.5 19 152/96 97 Room Air 209.3 01/30/18 15:02 98.5 Intake and Output 01/30/18 01/31/18 19:00 07:00 Intake Total 0 ml 400 ml Balance 0 ml 400 ml Intake Oral 0 ml IV Total 400 ml # Voids 1 Laboratory Tests 01/31/18 06:25: White Blood Count 5.0, Red Blood Count 4.05L, Hemoglobin 8.5L, Hematocrit 29.2L , Mean Corpuscular Volume 72L, Mean Corpuscular Hemoglobin 21.1L, Mean Corpuscular Hemoglobin Concent 29.2L, Red Cell Distribution Width 16.0H, Platelet Count 329, Mean Platelet Volume 5.2L, Neutrophils (%) (Auto) 52.3, Lymphocytes (%) (Auto) 34.5, Monocytes (%) (Auto) 9.6, Eosinophils (%) (Auto) 1.9, Basophils (%) (Auto) 1.7, Reticulocyte Count 1.8, Hemoglobin A [Pending], Hemoglobin A2 [Pending], Hemoglobin C [Pending], Hemoglobin F () [Pending] , Hemoglobin S [Pending], Variant Hemoglobin [Pending], Hemoglobin Electrophoresis Interp [Pending], Hemoglobin Interpretation [Pending], Hemoglobin Solubility [Pending], Sodium Level 138, Potassium Level 3.6, Chloride Level 103, Carbon Dioxide Level 26, Anion Gap 9, Blood Urea Nitrogen 9 , Creatinine 1.1, Estimat Glomerular Filtration Rate > 60, Glucose Level 93, Hemoglobin A1c 6.1H, Uric Acid 4.4, Calcium Level 8.5, Phosphorus Level 4.7, Magnesium Level 2.2, Iron Level 25L, Total Iron Binding Capacity 323, Percent Iron Saturation 8L, Unsaturated Iron Binding 298, Ferritin 17, Total Bilirubin 0.1L, Gamma Glutamyl Transpeptidase 29, Aspartate Amino Transf (AST/SGOT) 12L, Alanine Aminotransferase (ALT/SGPT) 18, Alkaline Phosphatase 71, Pro-B-Type Natriuretic Peptide 63, Total Protein 7.4, Albumin 3.1L, Globulin 4.3, Albumin/ Globulin Ratio 0.7L, Triglycerides Level 95, Cholesterol Level 142, LDL Cholesterol 74, HDL Cholesterol 63H, Cholesterol/HDL Ratio 2.3L, Vitamin B12 Level 349, Folate 6.7L, Thyroid Stimulating Hormone (TSH) 3.907H Height (Feet): 5 Height (Inches): 7.00 Weight (Pounds): 280 General Appearance: no apparent distress Objective PE not changed RC CABRERA Jan 31, 2018 13:42
[2018-01-31] MEDS: Vitamin B12 1000mcg/ml Inj SUBQ SCH (15:35)
[2018-01-31] MEDS ORDERED: Lidocaine 1% 10mg/ml/Epi 0.005mg/ml 30ml vial INJ ONE (18:45)
[2018-01-31] MEDS ORDERED: Bacitracin 50000 Units Vial ONE (18:45)
[2018-01-31] MEDS ORDERED: NeoSporin Gu Irrig 1ml Amp IRRIG ONE (18:45)
[2018-01-31] MEDS: Dyna-Hex 2% Top Sol 2oz TOPIC SCH (20:00)
--- NOTE | 2018-01-31 20:16 | Consultation ---
DATE OF CONSULTATION: 01/31/2018 HEMATOLOGY/ONCOLOGY CONSULTATION CONSULTING PHYSICIAN: Ho Canchola M.D. REFERRING PHYSICIAN: Rip Christian M.D. REASON FOR CONSULTATION: Evaluation of iron-deficiency anemia. IDENTIFYING DATA: Dear Dr. Christian, The patient is a pleasant 27-year-old female with past medical history significant for history of anemia requiring transfusions with blood in addition to IV iron in the past, most recently two months ago as well as occluded PICC line, history of ovarian cyst, has a history of hysterectomy, history of painful fibroids, had myomectomy and again recurrence, had hysterectomy, surgery complicated by infection. She at this time presents with off and on abdominal pain. In the ER, ultrasound showed fluid collection requiring drainage. Hematology Service was consulted for further evaluation. PAST MEDICAL HISTORY: As noted above. PAST SURGICAL HISTORY: Hysterectomy. MEDICATIONS: , ferrous sulfate, Lasix, Lisinopril, metoprolol, and nitrofurantoin. ALLERGIES: Tylenol, aspirin, Reglan, and prochlorperazine. REVIEW OF SYSTEMS: CONSTITUTIONAL: No fevers, chills, or night sweats. SKIN: No rashes, bumps, or itching. HEENT: No headache or hearing or vision changes. BREASTS: No lumps, pain, or discharge. PULMONARY: No cough, sputum, or shortness of breath. GASTROINTESTINAL: No nausea, vomiting, or diarrhea. GENITOURINARY: No dysuria, frequency, or urgency. MUSCULOSKELETAL: No joint swelling, muscle pain, or trauma. PHYSICAL EXAMINATION: VITAL SIGNS: Reviewed. GENERAL: No distress. PULMONARY: Decreased breath sounds. CARDIOVASCULAR: Regular rate. No S3 or S4. ABDOMEN: Soft, nontender, and nondistended. EXTREMITIES: A 1+ edema. LABORATORY DATA: I have ordered for ferritin and TIBC. Ferritin and TIBC is pending, have been ordered but . ASSESSMENT AND RECOMMENDATIONS: 1. Anemia due to iron deficiency. Start on IV iron for a total of five doses, first dose to be administer today. The patient continues to be microcytic. She does have history of hysterectomy. We will order ferritin, iron panel, hemoglobin electrophoresis has been ordered in addition to rule out hemolysis. Reticulocyte count pending as well. Administer IV iron. Hemoglobin goal is above 7. 2. defect. The patient with history of iron deficiency, status post IV iron infusions in the past, requiring transfusions as well. 3. Hyperglycemia, closely monitor. A1c goal less than 6.5. 4. Hypoalbuminemia potentially secondary to decreased p.o. intake. 5. Abdominal pain, seen by surgical service, not requiring surgery at this time. 6. Hypokalemia. I appreciate consultation. Thank you for consultation. Ho Canchola M.D. DR: ANJUM JOB#: [id number] CC:
--- NOTE | 2018-01-31 20:16 | History and Physical Report ---
DATE OF ADMISSION: 01/30/2018 NOTE: POOR AUDIO HISTORY OF PRESENT ILLNESS: The patient is admitted for postoperative abscess and abdominal pain status post hysterectomy in November and the patient also had right ovary removed in surgery on January 21 and is draining from the surgical site. The patient is admitted for cellulitis/possible postoperative abscess in the abdominal wall. She was admitted for open surgical site infection. The patient is also anemic. The patient also has low potassium. The patient has pain area, where the surgery was done on January 21, for the reason of right ovary and the reason for the removal of the ovary was the patient had a large ovarian cyst. The patient denies nausea, fever, or chills. Denies shortness of breath. Denies cough. Denies orthopnea. PAST MEDICAL HISTORY: Significant for history of ovarian cyst, iron-deficiency anemia, hypertension, and hernia. PAST SURGICAL HISTORY: Removal of the right ovary, hysterectomy, cholecystectomy, and hernia repair. ALLERGIES: Aspirin, Reglan, omeprazole, Tylenol, prochlorperazine, and metoclopramide. MEDICATIONS: Takes ferrous sulfate, Lasix, lisinopril, and metoprolol. FAMILY HISTORY: Noncontributory. SOCIAL HISTORY: Denies history of alcohol or illicit drugs. REVIEW OF SYSTEMS: HEENT: Denies headaches. RESPIRATORY: Denies shortness of breath. Denies cough. CARDIOVASCULAR: Denies chest pain. No orthopnea. GASTROINTESTINAL: Reports suprapubic tenderness at the surgical incision site and is draining . No nauseas or vomiting. No constipation. EXTREMITIES: Denies pain in lower extremities. CENTRAL NERVOUS SYSTEMS: Denies change in vision or speech pattern. PHYSICAL EXAMINATION: VITAL SIGNS: Temperature 98.5, blood pressure 152/96. HEENT: PERRLA. NECK: Supple. No lymphadenopathy. CHEST: Clear to auscultation. GASTROINTESTINAL: Soft. Suprapubic tenderness. There is a drainage at the surgical site, otherwise abdomen is soft. No palpable masses. No organomegaly. EXTREMITIES: No edema. NEUROLOGIC: Reflexes are equal on both sides. She is able to move all four extremities. LABORATORY DATA: Sodium 139, potassium 3.4, chloride 104, BUN of 6, creatinine 1.1, glucose of 111. Low potassium. WBC of . ASSESSMENT AND PLAN: 1. Anemia. 2. Low potassium. 3. Surgical wound cellulitis surgery that she has recently. PLAN: I have asked Dr. Scott, Dr. Solitario, Dr. Carter,
[2018-01-31] MEDS ORDERED: Propofol 200mg/20ml IV ONE (20:23)
[2018-01-31] MEDS ORDERED: Lidocaine 1% Plain 30 ml INJ ONE (20:23)
[2018-01-31] MEDS ORDERED: fentaNYL 100 mcg/2 mL IV ONE ×2 (20:24→21:08)
[2018-01-31] MEDS ORDERED: Iron Sucrose 200 MG in NS 110 ML IV SCH (21:00)
[2018-01-31] MEDS ORDERED: Iron Sucrose 100 MG in NS 55 ML IV SCH (21:00)
[2018-01-31] MEDS ORDERED: LR 1000ml 1,000 ML IVLG SCH (21:03)
[2018-01-31] MEDS ORDERED: Hydromorphone 0.5mg/0.5ml inj IVP PRN (21:15)
[2018-01-31] MEDS ORDERED: Atropine Inj 1mg/10ml Syr IV PRN (21:15)
[2018-01-31] MEDS ORDERED: Labetalol 5mg/ml 20ml vial IV PRN (21:15)
[2018-01-31] MEDS ORDERED: Midazolam 2mg/2ml Inj IVP PRN (21:15)
[2018-01-31] MEDS ORDERED: fentaNYL 100 mcg/2 mL IV PRN (21:15)
[2018-01-31] MEDS ORDERED: DiphenhydrAMINE 50mg/ml Inj IVP PRN (21:15)
[2018-01-31] MEDS ORDERED: LORazepam Inj 2mg/ml 1ml IV PRN (21:15)
--- NOTE | 2018-01-31 21:17 | Anethesia Preoperative Eval ---
Anesthesia Pre-op PMH/ROS General Date of Evaluation: Jan 31, 2018 Time of Evaluation: 08:44 Anesthesiologist: Keyshawn ASA Score: ASA 3 Mallampati Score Class I : Soft palate, uvula, fauces, pillars visible Class II: Soft palate, uvula, fauces visible Class III: Soft palate, base of uvula visible Class IV: Only hard plate visible Mallampati Classification: Class II Surgeon: Tyler Diagnosis: Abd Pain Surgical Procedure: I and D Groin Anesthesia History: none Family History: no anesthesia problems Allergies: Coded Allergies: ACETAMINOPHEN (Verified Allergy, Severe, Anaphylaxis, 11/13/17) ASPIRIN (Unverified Allergy, Severe, Anaphylaxis, 10/16/17) METOCLOPRAMIDE (Verified Allergy, Intermediate, 10/16/17) anxiety PROCHLORPERAZINE (Verified Allergy, Unknown, 10/16/17) anxiety Medications: see eMAR Past Medical History Cardiovascular: Reports: HTN, other - Cardiomegaly Other: obesity - morbid BMI 48 PSxH Narrative: Cardiac SX, VERÓNICA Anesthesia Pre-op Phys. Exam Physician Exam Last Vital Signs Date Time Temp Pulse Resp B/P (MAP) Pulse Ox O2 Delivery O2 Flow Rate FiO2 01/31/18 18:41 125/75 01/31/18 16:00 97.9 72 20 98 Room Air 97.9 Constitutional: NAD Neurologic: CN 2-12 intact Cardiovascular: RRR Respiratory: CTA Gastrointestinal: S/NT/ND Airway Exam Mallampati Score: Class II MO: limited ROM: limited Teeth: intact Anesthesia Pre-op A/P Labs Hematology Test 01/31/18 06:25 White Blood Count 5.0 K/UL (4.8-10.8) Red Blood Count 4.05 M/UL (4.20-5.40) L Hemoglobin 8.5 G/DL (12.0-16.0) L Hematocrit 29.2 % (37.0-47.0) L Mean Corpuscular Volume 72 FL (80-99) L Mean Corpuscular Hemoglobin 21.1 PG (27.0-31.0) L Mean Corpuscular Hemoglobin Concent 29.2 G/DL (32.0-36.0) L Red Cell Distribution Width 16.0 % (11.6-14.8) H Platelet Count 329 K/UL (150-450) Mean Platelet Volume 5.2 FL (6.5-10.1) L Neutrophils (%) (Auto) 52.3 % (45.0-75.0) Lymphocytes (%) (Auto) 34.5 % (20.0-45.0) Monocytes (%) (Auto) 9.6 % (1.0-10.0) Eosinophils (%) (Auto) 1.9 % (0.0-3.0) Basophils (%) (Auto) 1.7 % (0.0-2.0) Reticulocyte Count 1.8 % (0.0-2.0) Hemoglobin A Pending Hemoglobin A2 Pending Hemoglobin C Pending Hemoglobin F () Pending Hemoglobin S Pending Variant Hemoglobin Pending Hemoglobin Electrophoresis Interp Pending Hemoglobin Interpretation Pending Hemoglobin Solubility Pending Chemistry Test 01/31/18 06:25 Sodium Level 138 MMOL/L (136-145) Potassium Level 3.6 MMOL/L (3.5-5.1) Chloride Level 103 MMOL/L (98-107) Carbon Dioxide Level 26 MMOL/L (21-32) Anion Gap 9 mmol/L (5-15) Blood Urea Nitrogen 9 mg/dL (7-18) Creatinine 1.1 MG/DL (0.55-1.30) Estimat Glomerular Filtration Rate > 60 mL/min (>60) Glucose Level 93 MG/DL (74-106) Hemoglobin A1c 6.1 % (4.3-6.0) H Uric Acid 4.4 MG/DL (2.6-7.2) Calcium Level 8.5 MG/DL (8.5-10.1) Phosphorus Level 4.7 MG/DL (2.5-4.9) Magnesium Level 2.2 MG/DL (1.8-2.4) Iron Level 25 ug/dL (50-175) L Total Iron Binding Capacity 323 ug/dL (250-450) Percent Iron Saturation 8 % (15-50) L Unsaturated Iron Binding 298 ug/dL (112-346) Ferritin 17 NG/ML (8-388) Total Bilirubin 0.1 MG/DL (0.2-1.0) L Gamma Glutamyl Transpeptidase 29 U/L (5-85) Aspartate Amino Transf (AST/SGOT) 12 U/L (15-37) L Alanine Aminotransferase (ALT/SGPT) 18 U/L (12-78) Alkaline Phosphatase 71 U/L (46-116) Pro-B-Type Natriuretic Peptide 63 pg/mL (0-125) Total Protein 7.4 G/DL (6.4-8.2) Albumin 3.1 G/DL (3.4-5.0) L Globulin 4.3 g/dL Albumin/Globulin Ratio 0.7 (1.0-2.7) L Triglycerides Level 95 MG/DL (30-150) Cholesterol Level 142 MG/DL (< 200) LDL Cholesterol 74 mg/dL (<100) HDL Cholesterol 63 MG/DL (40-60) H Cholesterol/HDL Ratio 2.3 (3.3-4.4) L Vitamin B12 Level 349 PG/ML (193-986) Folate 6.7 NG/ML (8.6-58.9) L Thyroid Stimulating Hormone (TSH) 3.907 uiU/mL (0.358-3.740) Risk Assessment & Plan Assessment: ASA 3 Plan: GA Status Change Before Surgery: No Pre-Antibiotics Dru Gram Ancef IV Given Within 1 Hr of Incision: Yes Time Given: 08:51 Lucas Mahajan MD Jan 31, 2018 21:17
--- NOTE | 2018-01-31 21:24 | Brief Operative Note ---
Immediate Post Operative Note Operative Note Pre-op Diagnosis: abdominal wall abscess Procedure: 1. incision and drainage of abdominal wall abscess with sharp debridement of tissues 2. scar excision with excision of fistula Post-op Diagnosis: same as pre-op Surgeon: shorty Anesthesiologist: Angel Anesthesia: general Specimen: yes Complications: none Condition: stable Fluids: see records Estimated Blood Loss: minimal Drains: none Implant(s) used?: No Gus Scott Jan 31, 2018 21:24
--- NOTE | 2018-01-31 21:27 | Immediate Post-Op Evaluation ---
Immediate Post-Op Evalulation Immediate Post-Op Evalulation Procedure: I and D Groin Date of Evaluation: Jan 31, 2018 Time of Evaluation: 09:39 IV Fluids: 200 Blood Products: 0 Estimated Blood Loss: 20 Urinary Output: 0 Blood Pressure Systolic: 118 Blood Pressure Diastolic: 63 Pulse Rate: 87 Respiratory Rate: 16 O2 Sat by Pulse Oximetry: 100 Temperature (Fahrenheit): 97.3 Pain Score (1-10): 3 Nausea: No Vomiting: No Complications 0 Patient Status: awake, reacts, patent, extubated, none Hydration Status: adequate Dru Gram Ancef IV Given Within 1 Hr of Incision: Yes Time Given: 08:51 Lucas Mahajan MD Jan 31, 2018 21:27
--- NOTE | 2018-01-31 21:29 | 48 Hour Post Anesthesia Eval ---
Post Anesthesia Evaluation Procedure: I and D Groin Date of Evaluation: Jan 31, 2018 Time of Evaluation: 11:43 Blood Pressure Systolic: 119 0: 72 Pulse Rate: 89 Respiratory Rate: 18 Temperature (Fahrenheit): 98.2 O2 Sat by Pulse Oximetry: 100 Airway: patent Nausea: No Vomiting: No Pain Intensity: 3 Hydration Status: adequate Cardiopulmonary Status: Stable Mental Status/LOC: patient returned to baseline Follow-up Care/Observations: 0 Post-Anesthesia Complications: 0 Follow-up care needed: N/A Lucas Mahajan MD Jan 31, 2018 21:29
[2018-01-31] MEDS ORDERED: Norco 5mg/325mg tab ORAL PRN (21:30)
[2018-01-31] MEDS ORDERED: Ketorolac 30mg Inj IV PRN (21:30)
[2018-01-31] MEDS ORDERED: Milk of Magnesia 30ml Ud ORAL PRN (21:30)
[2018-01-31] MEDS ORDERED: HYDROcodone/Acetamin 10/325 tab ORAL PRN (21:30)
[2018-01-31] MEDS ORDERED: Morphine Sulfate 4mg/ml Inj IVP PRN ×2 (22:30)
--- NOTE | 2018-01-31 23:01 | Consultation ---
DATE OF CONSULTATION: 01/31/2018 INFECTIOUS DISEASE CONSULTATION CONSULTING PHYSICIAN: Taco Carter M.D. PRIMARY ATTENDING PHYSICIAN: Rip Christian M.D. REASON FOR CONSULT: Abdominal wall abscess. HISTORY OF PRESENT ILLNESS: This 27-year-old female admitted yesterday because of abdominal pain. She had hysterectomy in November of 2017 in [facility], had persistent problems since surgery. The patient had surgical site incision drainage 1 week before admission in [place]. At that time, the patient was discharged without any antibiotics. PAST MEDICAL HISTORY: Uterine fibroids status post hysterectomy, anemia, hypertension, and obesity. ALLERGY: Tylenol, aspirin, metoclopramide, and prochlorperazine. MEDICATIONS: Iron, folic acid, Zosyn, vancomycin, Prevacid, and morphine. SOCIAL HISTORY: Single. No history of alcohol, drug abuse, or smoking. REVIEW OF SYSTEMS: No fever. No chills. No nausea. No vomiting. She has lower abdominal pain. PHYSICAL EXAMINATION: GENERAL APPEARANCE: No acute distress, seems to be obese. VITAL SIGNS: Temperature 98.4 degrees, pulse 70, and blood pressure 117/71. HEAD AND NECK: [place] conjunctivae. HEART: S1 and S2 regular. LUNGS: Clear. ABDOMEN: Obese. Soft. There is a scar of surgery in suprapubic area. No significant discharge. EXTREMITIES: She has no edema. LABORATORY AND DIAGNOSTIC DATA: Sodium 138, potassium 3.6, chloride 103, bicarbonate 26, BUN 9, and creatinine 1.1. WBC 5, hemoglobin 8.5, hematocrit 29.2, and platelets are 329. The patient had a CT scan of the abdomen and pelvis that showed small accumulation of fluid, phlegmon versus abscess just anterior to the lower part of abdominal wall in the area of prior surgery, status post cholecystectomy. IMPRESSION: Abdominal wall abscess. Surgical site infection after cholecystectomy, has anemia, obesity, and hypertension. RECOMMENDATION: We will continue with vancomycin and Zosyn. We will follow up the cultures. At the end of my exam, I thank Dr. Christian, for involving me in the care of this patient. Taco Carter M.D. DR: THELMA JOB#: [id number] CC: LEANDRO
[2018-01-31] MEDS: Docusate 100mg cap ORAL SCH (23:13)
[2018-01-31] MEDS: Iron Sucrose 100 MG in NS 55 ML IV SCH (23:57)
[2018-02-01] VITALS: BP 123/69
[2018-02-01] MEDS: DiphenhydrAMINE 50mg/ml Inj IVP PRN ×6 (00:24→20:38)
--- NOTE | 2018-02-01 01:00 | Operative Note - Dictated ---
DATE OF OPERATION: 01/31/2018 PREOPERATIVE DIAGNOSIS: Abdominal wall abscess. POSTOPERATIVE DIAGNOSIS: Abdominal wall abscess. OPERATION PERFORMED: 1. Incision and drainage of abdominal abscess with excisional debridement of tissue 2. Scar excision with excision of fistula tract. ATTENDING SURGEON: Gus Scott M.D. FLAVOR ROOM WORKER: None. ANESTHESIOLOGIST: Lucas Mahajan M.D. ANESTHESIA: General BRISKET PULLER. ESTIMATED BLOOD LOSS: Minimal. IV FLUIDS: Please see anesthesia records. COMPLICATIONS: None. SPECIMENS: 1. Scar with fistula tract. 2. Abscess capsule wall and inflamed tissue. DRAINS: None. ANTIBIOTICS: The patient was on scheduled IV antibiotics prior to entering the operating room. WOUND CLASSIFICATION: Class III. INDICATIONS FOR PROCEDURE: This is a 27-year-old female, who presented to the emergency department of [facility] complaining of worsening bernadette-incisional abdominal pain with persistent drainage. The patient states that she was initially diagnosed with symptomatic fibroids and underwent myectomy a few months ago, which was unsuccessful and led to a later hysterectomy which was performed through a low Pfannenstiel incision. Postoperative care was complicated by a wound infection which was evacuated, washed out, and wound closed. Since the patient's midline wound scar had mainly healed, but there was an area of persistent drainage from the right lateral aspect of the wound which was not healing over the past few months. The patient states that she has had persistent pain in that area which is intermittently worse at times requiring prior emergency department visits including one recently when she was in [facility]. The patient has been given oral antibiotics as well and failed outpatient medical therapy for a presumed abdominal wall cellulitis. A CT of abdomen and pelvis was performed which identified an accumulation of fluid or phlegmon versus abscess anterior to the lower part of the abdominal wall around the area of the prior Pfannenstiel surgical site. On examination, there was some erythema, warmth, and tenderness around the prior wound and a fistula tract was identified in the right lateral aspect. At this time, discussion was had with the patient and given failure of medical and prior interventions, incision, drainage, washout, resection of fistula, and open wound with packing and dressing was indicated and recommended. The patient expressed understanding and desired to proceed with surgery to finally put an end to months of discomfort. OPERATIVE NOTE: The patient was taken to the operating room and placed on the operating table in supine position with bilateral arms out. All bony prominences were well padded. Preoperative time-out was taken identifying the patient, procedure, operative staff, and surgical staff. The patient was already on scheduled antibiotics prior to entering the operating room. SCDs were placed. The abdomen was clipped, prepped, and draped in standard surgical fashion. The right lateral fistula site was identified as well as the prior Pfannenstiel surgical incision which had mostly healed over at this time. An elliptical incision was made with a scar excision including the fistula tract around the right lateral aspect of the prior midline wound. Once this was complete, hemostasis was achieved with electrocautery, and electrocautery and sharp dissection were used to circumferentially dissect out the fistula tract until a few centimeters deep into the subcutaneous tissue, a [id number] pocket of murky fluid was identified and entered and evacuated. Cultures were sent. Following this, once the fluid was evacuated, the cavity was opened and noted to have a thick phlegmonous capsule. The capsule was dissected out sharply and sent to pathology with the prior specimen. Once all phlegmonous and scar tissue was evacuated and good healthy viable tissue was noted, hemostasis was achieved with electrocautery. The wound was then irrigated with copious amounts of warm sterile antibiotic-infused saline. Following this, given a decision was made prior to entering the operating room, packing with Kerlix and dressings were applied. At this time, local anesthetic was infiltrated into the skin incision throughout the procedure as necessary. At this time, conclusion of procedure began and the patient was extubated and taken to postanesthetic care unit in stable condition. Gus Scott M.D. DR: Ta JOB#: [id number] CC: LEANDRO
[2018-02-01] MEDS: Potassium Chloride 10 MEQ in D5 1/2NS 1,000 ML IV SCH ×3 (02:51→16:31)
[2018-02-01] MEDS: Vancomycin 1500mg IVPB SCH ×2 (02:52→12:38)
[2018-02-01] MEDS: Morphine Sulfate 4mg/ml Inj IVP PRN ×5 (03:07→20:39)
[2018-02-01 04:00] VITALS: BP 91/55
[2018-02-01] MEDS: Piperacillin/Tazobactam 3.375 GM in NS 110 ML IVPB SCH ×3 (05:27→21:14)
[2018-02-01 08:00] VITALS: BP 101/64
[2018-02-01] MEDS: Docusate 100mg cap ORAL SCH ×2 (08:42→17:04)
[2018-02-01] MEDS: Vitamin B12 1000mcg/ml Inj SUBQ SCH (08:42)
--- NOTE | 2018-02-01 11:47 | Infectious Diseases Prog Note ---
Assessment/Plan Assessment/Plan antibiotics vancomycin iv, zosyn A 1. abdominal wall abscess s/p drainage 2. s/p hysterectomy 3. hypertension P 1. continue vancomycin iv, zosyn 2. will follow up cultures Subjective Constitutional: Denies: fever, chills Respiratory: Denies: shortness of breath Gastrointestinal/Abdominal: Reports: nausea; Denies: vomiting, diarrhea Musculoskeletal: Reports: pain - mild Allergies: Coded Allergies: ACETAMINOPHEN (Verified Allergy, Severe, Anaphylaxis, 11/13/17) ASPIRIN (Unverified Allergy, Severe, Anaphylaxis, 10/16/17) METOCLOPRAMIDE (Verified Allergy, Intermediate, 10/16/17) anxiety PROCHLORPERAZINE (Verified Allergy, Unknown, 10/16/17) anxiety Objective Vital Signs Last 24 Hour Vital Signs Date Time Temp Pulse Resp B/P (MAP) Pulse Ox O2 Delivery O2 Flow Rate FiO2 02/01/18 08:00 98.4 70 20 101/64 99 Room Air 98.4 02/01/18 04:00 97.5 81 19 91/55 98 Nasal Cannula 3 97.5 02/01/18 00:00 98.6 75 18 123/69 100 Nasal Cannula 3 98.6 01/31/18 22:20 98.6 70 18 116/67 100 Nasal Cannula 3 98.6 01/31/18 22:05 98.6 75 18 139/82 100 Nasal Cannula 3 98.6 01/31/18 21:50 75 16 108/65 100 Nasal Cannula 3 01/31/18 21:38 82 16 101/60 100 Simple Mask 6 01/31/18 21:33 84 16 102/63 100 Simple Mask 6 01/31/18 21:29 208.8 89 18 100 01/31/18 21:27 207.1 87 16 100 01/31/18 20:00 98.4 83 20 128/61 100 Room Air 98.4 01/31/18 18:41 125/75 01/31/18 16:00 97.9 72 20 97/50 98 Room Air 97.9 01/31/18 12:00 98.4 70 21 117/71 100 Room Air 98.4 Height (Feet): 5 Height (Inches): 7.00 Weight (Pounds): 280 Respiratory/Chest: lungs clear Cardiovascular: normal rate, regular rhythm, regularly irregular Abdomen: other - in dressings Microbiology Date/Time Source Procedure Growth Status 01/30/18 12:10 Blood Blood Culture - Preliminary NO GROWTH AFTER 24 HOURS Resulted 01/30/18 12:00 Blood Blood Culture - Preliminary NO GROWTH AFTER 24 HOURS Resulted Laboratory Tests Test 01/31/18 23:20 Vancomycin Level Trough 17.0 ug/mL (5.0-12.0) H Current Medications Medications (Trade) Dose Ordered Sig/Shweta Route PRN Reason Start Time Stop Time Status Last Admin Dose Admin Acetaminophen (Tylenol) 650 mg Q6H PRN ORAL Mild Pain (Pain Scale 1-3) 01/31/18 21:30 03/02/18 21:29 Acetaminophen/ Hydrocodone Bitart ([place] 10/325) 1 tab Q4H PRN ORAL Severe Pain (Pain Scale 7-10) 01/31/18 21:30 02/07/18 21:29 Acetaminophen/ Hydrocodone Bitart ([place] 5/325) 1 tab Q4H PRN ORAL Moderate Pain (Pain Scale 4-6) 01/31/18 21:30 02/07/18 21:29 Al Hydroxide/Mg Hydroxide (Mylanta) 15 ml Q6H PRN ORAL DYSPEPSIA 01/31/18 21:30 03/02/18 21:29 Chlorhexidine Gluconate (Teodora-Hex 2%) 1 applic DAILY@2000 TOPIC 02/01/18 20:00 03/03/18 19:59 Cyanocobalamin (Vitamin B12) 1,000 mcg DAILY SUBQ 01/31/18 13:45 03/02/18 13:44 02/01/18 08:42 Diphenhydramine HCl (Benadryl) 12.5 mg Q6H PRN IVP Itching/Pruritis 01/31/18 21:30 03/02/18 21:29 02/01/18 08:46 Diphenhydramine HCl (Benadryl) 25 mg Q4H PRN IVP Itching 01/30/18 18:00 03/01/18 17:59 02/01/18 04:40 Docusate Sodium (Colace) 100 mg TWICE A DAY ORAL 01/31/18 22:21 03/02/18 22:20 02/01/18 08:42 Folic Acid (Folate) 2 mg DAILY ORAL 01/31/18 13:45 03/02/18 13:44 02/01/18 08:42 Iopamidol (Isovue-300 100ml) 100 ml NOW PRN INJ Radiology Procedure 01/30/18 12:00 02/01/18 11:59 Iron Sucrose 100 mg/Sodium Chloride 60 ml @ 240 mls/hr BEDTIME IV 01/31/18 23:46 02/04/18 21:14 01/31/18 23:57 Ketorolac Tromethamine (Toradol 30mg) 15 mg Q6H PRN IV For Pain 01/31/18 21:30 02/05/18 21:29 Lansoprazole (Prevacid) 30 mg DAILY ORAL 01/30/18 21:00 03/01/18 20:59 02/01/18 08:42 Magnesium Hydroxide (Mom) 30 ml BIDPRN PRN ORAL Constipation 01/31/18 21:30 03/02/18 21:29 Morphine Sulfate (Morphine Sulfate) 1 mg Q4H PRN IVP MILD PAIN 1-3 01/31/18 22:30 02/07/18 22:29 Morphine Sulfate (Morphine Sulfate) 2 mg Q4H PRN IVP PAIN SCALE 4-6 01/31/18 22:30 02/07/18 22:29 Morphine Sulfate (Morphine Sulfate) 4 mg Q4H PRN IVP For Pain 01/30/18 17:30 02/06/18 17:29 02/01/18 08:43 Morphine Sulfate (Morphine Sulfate) 4 mg Q4H PRN IVP pain score 7-10 01/31/18 21:30 02/07/18 21:29 02/01/18 03:07 Ondansetron HCl (Zofran) 4 mg Q6H PRN IVP Nausea & Vomiting 01/31/18 21:30 03/02/18 21:29 02/01/18 09:51 Piperacillin Sod/ Tazobactam Sod 3.375 gm/Sodium Chloride 110 ml @ 27.5 mls/hr EVERY 8 HOURS IVPB 01/31/18 06:00 02/07/18 05:59 02/01/18 05:27 Potassium Chloride 10 meq/ Dextrose/Sodium Chloride 1,005 ml @ 75 mls/hr [id number] IV 02/01/18 16:00 03/03/18 15:59 Vancomycin HCl (Vanco rx to dose) 1 ea DAILY PRN MISC Per rx protocol 01/30/18 21:00 03/01/18 20:59 Vancomycin HCl/ Dextrose 250 ml @ 125 mls/hr Q12H IVPB 02/01/18 01:00 02/06/18 00:59 02/01/18 02:52 TONYA SAEED Feb 01, 2018 11:47
--- NOTE | 2018-02-01 11:56 | Nephrology Progress Note ---
Assessment/Plan Problem List: (1) Anemia Assessment: LOW IRON (2) Abdominal wall abscess at site of surgical wound (3) Hypokalemia Assessment NO LABS TODAY YET Plan IV Iron PO Folate SQ B12 PO KCL stable from renal stand Subjective ROS Limited/Unobtainable: No Objective Objective Last 24 Hour Vital Signs Date Time Temp Pulse Resp B/P (MAP) Pulse Ox O2 Delivery O2 Flow Rate FiO2 02/01/18 08:00 98.4 70 20 101/64 99 Room Air 98.4 02/01/18 04:00 97.5 81 19 91/55 98 Nasal Cannula 3 97.5 02/01/18 00:00 98.6 75 18 123/69 100 Nasal Cannula 3 98.6 01/31/18 22:20 98.6 70 18 116/67 100 Nasal Cannula 3 98.6 01/31/18 22:05 98.6 75 18 139/82 100 Nasal Cannula 3 98.6 01/31/18 21:50 75 16 108/65 100 Nasal Cannula 3 01/31/18 21:38 82 16 101/60 100 Simple Mask 6 01/31/18 21:33 84 16 102/63 100 Simple Mask 6 01/31/18 21:29 208.8 89 18 100 01/31/18 21:27 207.1 87 16 100 01/31/18 20:00 98.4 83 20 128/61 100 Room Air 98.4 01/31/18 18:41 125/75 01/31/18 16:00 97.9 72 20 97/50 98 Room Air 97.9 01/31/18 12:00 98.4 70 21 117/71 100 Room Air 98.4 Intake and Output 01/31/18 02/01/18 19:00 07:00 Intake Total 75 ml 812.5 ml Output Total 20 ml Balance 75 ml 792.5 ml Intake Oral 60 ml IV Total 75 ml 752.5 ml Output Estimated Blood Loss 20 ml # Voids 1 Laboratory Tests 01/31/18 23:20: Vancomycin Level Trough 17.0H Height (Feet): 5 Height (Inches): 7.00 Weight (Pounds): 280 General Appearance: no apparent distress Objective PE not changed RC CABRERA Feb 01, 2018 11:56
[2018-02-01 12:00] VITALS: BP 99/67
--- NOTE | 2018-02-01 13:52 | General Progress Note ---
Assessment/Plan Status: unchanged Assessment/Plan 1. Anemia due to iron deficiency. Anemia w/u was reviewed, TIBC elevated and iron level is low, ferritin borderline but likely from reactive process --> Start 01/31 on IV iron for a total of five doses. --> The patient continues to be microcytic. h/o hysterectomy. --> anemia w/u has been reviewed. will trend daily --> Hemoglobin goal is above 7. 2. Hyperglycemia, --> closely monitor. --> A1c goal less than 6.5. 3. Hypoalbuminemia potentially secondary to decreased p.o. intake. 4. Abdominal pain, seen by surgical service, not requiring surgery at this time. --> abd CT shows: Small accumulation of fluid or phlegmon versus abscess just anterior to the lower part of the abdominal wall in the area of prior surgery. Follow-up suggested. Apparent hysterectomy. Apparent cholecystectomy. Small hiatal hernia. Moderate fecal retention in the rectum. s/p surgery 5. Hypokalemia. --> improved Subjective Date patient seen: Feb 01, 2018 ROS Limited/Unobtainable: Yes Gastrointestinal/Abdominal: Reports: abdominal pain Allergies: Coded Allergies: ACETAMINOPHEN (Verified Allergy, Severe, Anaphylaxis, 11/13/17) ASPIRIN (Unverified Allergy, Severe, Anaphylaxis, 10/16/17) METOCLOPRAMIDE (Verified Allergy, Intermediate, 10/16/17) anxiety PROCHLORPERAZINE (Verified Allergy, Unknown, 10/16/17) anxiety All Systems: reviewed and negative except above Subjective Pt c/o abd pain, on morphine. No acute overnight events. Vitals are stable. No resp distress. Objective Last 24 Hour Vital Signs Date Time Temp Pulse Resp B/P (MAP) Pulse Ox O2 Delivery O2 Flow Rate FiO2 02/01/18 12:00 97.5 83 20 99/67 98 Room Air 97.5 02/01/18 08:00 98.4 70 20 101/64 99 Room Air 98.4 02/01/18 04:00 97.5 81 19 91/55 98 Nasal Cannula 3 97.5 02/01/18 00:00 98.6 75 18 123/69 100 Nasal Cannula 3 98.6 01/31/18 22:20 98.6 70 18 116/67 100 Nasal Cannula 3 98.6 01/31/18 22:05 98.6 75 18 139/82 100 Nasal Cannula 3 98.6 01/31/18 21:50 75 16 108/65 100 Nasal Cannula 3 01/31/18 21:38 82 16 101/60 100 Simple Mask 6 01/31/18 21:33 84 16 102/63 100 Simple Mask 6 01/31/18 21:29 208.8 89 18 100 01/31/18 21:27 207.1 87 16 100 01/31/18 20:00 98.4 83 20 128/61 100 Room Air 98.4 01/31/18 18:41 125/75 01/31/18 16:00 97.9 72 20 97/50 98 Room Air 97.9 Intake and Output 01/31/18 02/01/18 19:00 07:00 Intake Total 75 ml 812.5 ml Output Total 20 ml Balance 75 ml 792.5 ml Intake Oral 60 ml IV Total 75 ml 752.5 ml Output Estimated Blood Loss 20 ml # Voids 1 Laboratory Tests 01/31/18 23:20: Vancomycin Level Trough 17.0H Height (Feet): 5 Height (Inches): 7.00 Weight (Pounds): 280 General Appearance: no apparent distress, alert EENT: PERRL/EOMI Neck: normal alignment Cardiovascular: normal peripheral pulses Respiratory/Chest: no respiratory distress Abdomen: tender Ho Canchola MD Feb 01, 2018 13:52
[2018-02-01 14:46] LABS: BASOPHILS % (AUTO) 0.8 % (0.0-2.0); EOSINOPHILS % (AUTO) 0.8 % (0.0-3.0); HEMATOCRIT 30.3 % (37.0-47.0); HEMOGLOBIN 9.1 G/DL (12.0-16.0); LYMPHOCYTES % (AUTO) 16.8 % (20.0-45.0); MEAN CORPUSCULAR VOLUME 72 FL (80-99); MONOCYTES % (AUTO) 10.3 % (1.0-10.0); NEUTROPHILS % (AUTO) 71.2 % (45.0-75.0); PLATELET COUNT 416 K/UL (150-450); RED BLOOD COUNT 4.23 M/UL (4.20-5.40); RED CELL DISTRIBUTION WIDTH 16.3 % (11.6-14.8); WHITE BLOOD COUNT 6.8 K/UL (4.8-10.8)
[2018-02-01 14:54] LABS: ALANINE AMINOTRANSFERASE 15 U/L (12-78); ALBUMIN 3.2 G/DL (3.4-5.0); ALBUMIN/GLOBULIN RATIO 0.7 (1.0-2.7); ALKALINE PHOSPHATASE 63 U/L (46-116); ANION GAP 7 mmol/L (5-15); ASPARTATE AMINO TRANSFERASE 16 U/L (15-37); BILIRUBIN,TOTAL 0.2 MG/DL (0.2-1.0); BLOOD UREA NITROGEN 7 mg/dL (7-18); CALCIUM 8.6 MG/DL (8.5-10.1); CARBON DIOXIDE 27 MMOL/L (21-32); CHLORIDE 102 MMOL/L (98-107); CREATININE 1.5 MG/DL (0.55-1.30); POTASSIUM 3.9 MMOL/L (3.5-5.1); SODIUM 136 MMOL/L (136-145)
--- NOTE | 2018-02-01 14:54 | General Progress Note ---
Progress Note Progress Note Surgery: doing well. no acute events. pain from wound site as anticipated. afebrile, HD stable, labs reviewed wound packing and dressings removed. wound healing. new packing and dressings applied. -packing and dressings TID -cont Abx -await cultures -will need home health for wound care upon discharge. Gus Scott Feb 01, 2018 14:54
[2018-02-01 16:00] VITALS: BP 112/56
[2018-02-01] MEDS ORDERED: [UNRECOGNIZED DRUG - OTHER] IV SCH ×2 (16:00)
[2018-02-01] MEDS ORDERED: NS 275ml ONE (17:39)
[2018-02-01] MEDS ORDERED: Tubing IV Secondary IV ONE (17:59)
[2018-02-01 20:00] VITALS: BP 124/72
[2018-02-01] MEDS: Dyna-Hex 2% Top Sol 2oz TOPIC SCH (20:39)
[2018-02-01] MEDS: Iron Sucrose 100 MG in NS 55 ML IV SCH (20:39)
--- NOTE | 2018-02-01 21:07 | General Progress Note ---
Assessment/Plan Problem List: (1) Abdominal pain ICD Codes: R10.9 - Unspecified abdominal pain SNOMED: 29911152 (2) Wound infection after surgery ICD Codes: T81.4XXA - Infection following a procedure, initial encounter SNOMED: 57536317, 313075947 (3) Abdominal wall abscess at site of surgical wound ICD Codes: T81.4XXA - Infection following a procedure, initial encounter SNOMED: 344351482, 55513848, 023736265 (4) Hypokalemia ICD Codes: E87.6 - Hypokalemia SNOMED: 46073395 Status: progressing Assessment/Plan afebrile cellulitis/wound infection at surgical site reviewed chart and labs and meds Subjective Allergies: Coded Allergies: ACETAMINOPHEN (Verified Allergy, Severe, Anaphylaxis, 11/13/17) ASPIRIN (Unverified Allergy, Severe, Anaphylaxis, 10/16/17) METOCLOPRAMIDE (Verified Allergy, Intermediate, 10/16/17) anxiety PROCHLORPERAZINE (Verified Allergy, Unknown, 10/16/17) anxiety Subjective itching Objective Last 24 Hour Vital Signs Date Time Temp Pulse Resp B/P (MAP) Pulse Ox O2 Delivery O2 Flow Rate FiO2 02/01/18 20:39 98.9 02/01/18 16:00 98.9 97 20 112/56 100 Room Air 98.9 02/01/18 12:00 97.5 83 20 99/67 98 Room Air 97.5 02/01/18 08:00 98.4 70 20 101/64 99 Room Air 98.4 02/01/18 04:00 97.5 81 19 91/55 98 Nasal Cannula 3 97.5 02/01/18 00:00 98.6 75 18 123/69 100 Nasal Cannula 3 98.6 01/31/18 22:20 98.6 70 18 116/67 100 Nasal Cannula 3 98.6 01/31/18 22:05 98.6 75 18 139/82 100 Nasal Cannula 3 98.6 01/31/18 21:50 75 16 108/65 100 Nasal Cannula 3 01/31/18 21:38 82 16 101/60 100 Simple Mask 6 01/31/18 21:33 84 16 102/63 100 Simple Mask 6 01/31/18 21:29 208.8 89 18 100 01/31/18 21:27 207.1 87 16 100 Intake and Output 01/31/18 02/01/18 19:00 07:00 Intake Total 75 ml 812.5 ml Output Total 20 ml Balance 75 ml 792.5 ml Intake Oral 60 ml IV Total 75 ml 752.5 ml Output Estimated Blood Loss 20 ml # Voids 1 Laboratory Tests 01/31/18 23:20: Vancomycin Level Trough 17.0H 02/01/18 14:30: White Blood Count 6.8, Red Blood Count 4.23, Hemoglobin 9.1L, Hematocrit 30.3L, Mean Corpuscular Volume 72L, Mean Corpuscular Hemoglobin 21.5L, Mean Corpuscular Hemoglobin Concent 29.9L, Red Cell Distribution Width 16.3H, Platelet Count 416, Mean Platelet Volume 5.8L, Neutrophils (%) (Auto) 71.2, Lymphocytes (%) (Auto) 16.8L, Monocytes (%) (Auto) 10.3H, Eosinophils (%) (Auto ) 0.8, Basophils (%) (Auto) 0.8, Sodium Level 136, Potassium Level 3.9, Chloride Level 102, Carbon Dioxide Level 27, Anion Gap 7, Blood Urea Nitrogen 7 , Creatinine 1.5H, Estimat Glomerular Filtration Rate 50.1, Glucose Level 140H, Calcium Level 8.6, Total Bilirubin 0.2, Aspartate Amino Transf (AST/SGOT) 16, Alanine Aminotransferase (ALT/SGPT) 15, Alkaline Phosphatase 63, Total Protein 7.5, Albumin 3.2L, Globulin 4.3, Albumin/Globulin Ratio 0.7L Height (Feet): 5 Height (Inches): 7.00 Weight (Pounds): 280 Rip Christian MD Feb 01, 2018 21:07
[2018-02-02] VITALS: BP 101/57
[2018-02-02] MEDS: DiphenhydrAMINE 50mg/ml Inj IVP PRN ×5 (00:46→20:14)
[2018-02-02] MEDS: Morphine Sulfate 4mg/ml Inj IVP PRN ×6 (00:46→22:06)
[2018-02-02] MEDS: Vancomycin 1500mg IVPB SCH (01:21)
[2018-02-02 04:00] VITALS: BP 112/64
[2018-02-02] MEDS: Piperacillin/Tazobactam 3.375 GM in NS 110 ML IVPB SCH ×2 (05:59→21:12)
[2018-02-02 07:05] LABS: BASOPHILS % (AUTO) 0.6 % (0.0-2.0); EOSINOPHILS % (AUTO) 1.2 % (0.0-3.0); HEMATOCRIT 26.8 % (37.0-47.0); LYMPHOCYTES % (AUTO) 21.5 % (20.0-45.0); MEAN CORPUSCULAR VOLUME 71 FL (80-99); MONOCYTES % (AUTO) 14.6 % (1.0-10.0); NEUTROPHILS % (AUTO) 62.1 % (45.0-75.0); PLATELET COUNT 395 K/UL (150-450); RED BLOOD COUNT 3.79 M/UL (4.20-5.40); RED CELL DISTRIBUTION WIDTH 15.6 % (11.6-14.8); WHITE BLOOD COUNT 6.6 K/UL (4.8-10.8)
[2018-02-02 07:31] LABS: ALANINE AMINOTRANSFERASE 17 U/L (12-78); ALBUMIN/GLOBULIN RATIO 0.8 (1.0-2.7); ALKALINE PHOSPHATASE 56 U/L (46-116); ANION GAP 6 mmol/L (5-15); ASPARTATE AMINO TRANSFERASE 16 U/L (15-37); BILIRUBIN,TOTAL 0.2 MG/DL (0.2-1.0); BLOOD UREA NITROGEN 9 mg/dL (7-18); CALCIUM 8.8 MG/DL (8.5-10.1); CARBON DIOXIDE 27 MMOL/L (21-32); CHLORIDE 107 MMOL/L (98-107); CREATININE 1.8 MG/DL (0.55-1.30); PHOSPHORUS 4.8 MG/DL (2.5-4.9); POTASSIUM 3.7 MMOL/L (3.5-5.1); SODIUM 140 MMOL/L (136-145)
[2018-02-02 08:00] VITALS: BP 105/68
[2018-02-02] MEDS: Docusate 100mg cap ORAL SCH ×2 (09:00→18:00)
[2018-02-02] MEDS: Vitamin B12 1000mcg/ml Inj SUBQ SCH (09:06)
[2018-02-02 12:00] VITALS: BP 106/79
--- NOTE | 2018-02-02 12:34 | Infectious Diseases Prog Note ---
Assessment/Plan Assessment/Plan A 1. abdominal wall abscess s/p drainage 2. s/p hysterectomy 3. hypertension 4. Anemia 5. Obesity P 1. continue vancomycin iv, Zosyn 2. will follow up culture3. at time of discharge PO antibiotic Subjective ROS Limited/Unobtainable: No Constitutional: Reports: no symptoms Respiratory: Reports: no symptoms Cardiovascular: Reports: no symptoms Genitourinary: Reports: no symptoms Skin: Reports: no symptoms Allergies: Coded Allergies: ACETAMINOPHEN (Verified Allergy, Severe, Anaphylaxis, 11/13/17) ASPIRIN (Unverified Allergy, Severe, Anaphylaxis, 10/16/17) METOCLOPRAMIDE (Verified Allergy, Intermediate, 10/16/17) anxiety PROCHLORPERAZINE (Verified Allergy, Unknown, 10/16/17) anxiety Objective Vital Signs Last 24 Hour Vital Signs Date Time Temp Pulse Resp B/P (MAP) Pulse Ox O2 Delivery O2 Flow Rate FiO2 02/02/18 08:00 98.2 75 20 105/68 100 Room Air 98.2 02/02/18 04:00 97.6 84 20 112/64 100 Room Air 97.6 02/02/18 00:00 98.2 82 20 101/57 100 Room Air 98.2 02/01/18 20:39 98.9 02/01/18 20:00 97.7 85 20 124/72 99 Room Air 97.7 02/01/18 16:00 98.9 97 20 112/56 100 Room Air 98.9 Height (Feet): 5 Height (Inches): 7.00 Weight (Pounds): 280 General Appearance: no acute distress HEENT: mucous membranes moist Respiratory/Chest: lungs clear Cardiovascular: normal rate, other - has Portacath Abdomen: soft, non tender Extremities: no edema Skin: other - surgical wound in suprapubic area Neurologic/Psychiatric: alert, oriented x 3, responsive Microbiology Date/Time Source Procedure Growth Status 01/30/18 15:35 Nasal Nares MRSA Culture - Final NO METHICILLIN RESISTANT STAPH AUREUS... Complete 01/31/18 21:20 Abdominal Abscess Gram Stain - Final Resulted 01/31/18 21:20 Abdominal Abscess Aerobic Culture - Preliminary NO GROWTH AFTER 24 HOURS Resulted 01/31/18 21:20 Abdominal Abscess Anaerobic Culture Pending Resulted 01/30/18 15:35 Rectum VRE Culture - Final NO VANCOMYCIN RESISTANT ENTEROCOCCUS ... Complete 01/30/18 15:35 Rectum - Final NO CARBAPENEM-RESISTANT ENTEROBACTERI... Complete Laboratory Tests Test 02/01/18 14:30 02/02/18 06:00 White Blood Count 6.8 K/UL (4.8-10.8) 6.6 K/UL (4.8-10.8) Red Blood Count 4.23 M/UL (4.20-5.40) 3.79 M/UL (4.20-5.40) L Hemoglobin 9.1 G/DL (12.0-16.0) L 8.0 G/DL (12.0-16.0) L Hematocrit 30.3 % (37.0-47.0) L 26.8 % (37.0-47.0) L Mean Corpuscular Volume 72 FL (80-99) L 71 FL (80-99) L Mean Corpuscular Hemoglobin 21.5 PG (27.0-31.0) L 21.2 PG (27.0-31.0) L Mean Corpuscular Hemoglobin Concent 29.9 G/DL (32.0-36.0) L 30.0 G/DL (32.0-36.0) L Red Cell Distribution Width 16.3 % (11.6-14.8) H 15.6 % (11.6-14.8) H Platelet Count 416 K/UL (150-450) 395 K/UL (150-450) Mean Platelet Volume 5.8 FL (6.5-10.1) L 5.8 FL (6.5-10.1) L Neutrophils (%) (Auto) 71.2 % (45.0-75.0) 62.1 % (45.0-75.0) Lymphocytes (%) (Auto) 16.8 % (20.0-45.0) L 21.5 % (20.0-45.0) Monocytes (%) (Auto) 10.3 % (1.0-10.0) H 14.6 % (1.0-10.0) H Eosinophils (%) (Auto) 0.8 % (0.0-3.0) 1.2 % (0.0-3.0) Basophils (%) (Auto) 0.8 % (0.0-2.0) 0.6 % (0.0-2.0) Sodium Level 136 MMOL/L (136-145) 140 MMOL/L (136-145) Potassium Level 3.9 MMOL/L (3.5-5.1) 3.7 MMOL/L (3.5-5.1) Chloride Level 102 MMOL/L (98-107) 107 MMOL/L (98-107) Carbon Dioxide Level 27 MMOL/L (21-32) 27 MMOL/L (21-32) Anion Gap 7 mmol/L (5-15) 6 mmol/L (5-15) Blood Urea Nitrogen 7 mg/dL (7-18) 9 mg/dL (7-18) Creatinine 1.5 MG/DL (0.55-1.30) H 1.8 MG/DL (0.55-1.30) H Estimat Glomerular Filtration Rate 50.1 mL/min (>60) 40.6 mL/min (>60) Glucose Level 140 MG/DL (74-106) H 92 MG/DL (74-106) Calcium Level 8.6 MG/DL (8.5-10.1) 8.8 MG/DL (8.5-10.1) Total Bilirubin 0.2 MG/DL (0.2-1.0) 0.2 MG/DL (0.2-1.0) Aspartate Amino Transf (AST/SGOT) 16 U/L (15-37) 16 U/L (15-37) Alanine Aminotransferase (ALT/SGPT) 15 U/L (12-78) 17 U/L (12-78) Alkaline Phosphatase 63 U/L (46-116) 56 U/L (46-116) Total Protein 7.5 G/DL (6.4-8.2) 6.9 G/DL (6.4-8.2) Albumin 3.2 G/DL (3.4-5.0) L 3.0 G/DL (3.4-5.0) L Globulin 4.3 g/dL 3.9 g/dL Albumin/Globulin Ratio 0.7 (1.0-2.7) L 0.8 (1.0-2.7) L Uric Acid 4.2 MG/DL (2.6-7.2) Phosphorus Level 4.8 MG/DL (2.5-4.9) Magnesium Level 2.3 MG/DL (1.8-2.4) Current Medications Medications (Trade) Dose Ordered Sig/Shweta Route PRN Reason Start Time Stop Time Status Last Admin Dose Admin Acetaminophen (Tylenol) 650 mg Q6H PRN ORAL Mild Pain (Pain Scale 1-3) 01/31/18 21:30 03/02/18 21:29 Acetaminophen/ Hydrocodone Bitart ([place] 10/325) 1 tab Q4H PRN ORAL Severe Pain (Pain Scale 7-10) 01/31/18 21:30 02/07/18 21:29 Acetaminophen/ Hydrocodone Bitart ([place] 5/325) 1 tab Q4H PRN ORAL Moderate Pain (Pain Scale 4-6) 01/31/18 21:30 02/07/18 21:29 Al Hydroxide/Mg Hydroxide (Mylanta) 15 ml Q6H PRN ORAL DYSPEPSIA 01/31/18 21:30 03/02/18 21:29 Chlorhexidine Gluconate (Teodora-Hex 2%) 1 applic DAILY@2000 TOPIC 02/01/18 20:00 03/03/18 19:59 02/01/18 20:39 Cyanocobalamin (Vitamin B12) 1,000 mcg DAILY SUBQ 01/31/18 13:45 03/02/18 13:44 02/02/18 09:06 Diphenhydramine HCl (Benadryl) 12.5 mg Q6H PRN IVP Itching/Pruritis 01/31/18 21:30 03/02/18 21:29 02/01/18 08:46 Diphenhydramine HCl (Benadryl) 25 mg Q4H PRN IVP Itching 01/30/18 18:00 03/01/18 17:59 02/02/18 10:01 Docusate Sodium (Colace) 100 mg TWICE A DAY ORAL 01/31/18 22:21 03/02/18 22:20 02/01/18 08:42 Folic Acid (Folate) 2 mg DAILY ORAL 01/31/18 13:45 03/02/18 13:44 02/02/18 09:06 Iron Sucrose 100 mg/Sodium Chloride 60 ml @ 240 mls/hr BEDTIME IV 01/31/18 23:46 02/04/18 21:14 02/01/18 20:39 Ketorolac Tromethamine (Toradol 30mg) 15 mg Q6H PRN IV For Pain 01/31/18 21:30 02/05/18 21:29 Lansoprazole (Prevacid) 30 mg DAILY ORAL 01/30/18 21:00 03/01/18 20:59 02/02/18 09:06 Magnesium Hydroxide (Mom) 30 ml BIDPRN PRN ORAL Constipation 01/31/18 21:30 03/02/18 21:29 Morphine Sulfate (Morphine Sulfate) 1 mg Q4H PRN IVP MILD PAIN 1-3 01/31/18 22:30 02/07/18 22:29 Morphine Sulfate (Morphine Sulfate) 2 mg Q4H PRN IVP PAIN SCALE 4-6 01/31/18 22:30 02/07/18 22:29 Morphine Sulfate (Morphine Sulfate) 4 mg Q4H PRN IVP For Pain 01/30/18 17:30 02/06/18 17:29 02/02/18 10:02 Morphine Sulfate (Morphine Sulfate) 4 mg Q4H PRN IVP pain score 7-10 01/31/18 21:30 02/07/18 21:29 02/01/18 16:23 Ondansetron HCl (Zofran) 4 mg Q6H PRN IVP Nausea & Vomiting 01/31/18 21:30 03/02/18 21:29 02/02/18 10:28 Piperacillin Sod/ Tazobactam Sod 3.375 gm/Sodium Chloride 110 ml @ 27.5 mls/hr EVERY 8 HOURS IVPB 01/31/18 06:00 02/07/18 05:59 02/02/18 05:59 Potassium Chloride 10 meq/ Dextrose/Sodium Chloride 1,005 ml @ 75 mls/hr [id number] IV 02/01/18 16:00 03/03/18 15:59 02/01/18 16:31 Vancomycin HCl (Vanco rx to dose) 1 ea DAILY PRN MISC Per rx protocol 01/30/18 21:00 03/01/18 20:59 Vancomycin HCl/ Dextrose 250 ml @ 125 mls/hr Q12H IVPB 02/01/18 01:00 02/06/18 00:59 02/02/18 01:21 Taco Carter MD Feb 02, 2018 12:34
[2018-02-02] MEDS ORDERED: Albumin Human 5% 250ml IV ONE (12:45)
--- NOTE | 2018-02-02 12:47 | General Progress Note ---
Assessment/Plan Status: stable Assessment/Plan 1. Anemia due to iron deficiency. Anemia w/u was reviewed, TIBC elevated and iron level is low, ferritin borderline but likely from reactive process --> Start 01/31 on IV iron for a total of five doses. --> The patient continues to be microcytic. h/o hysterectomy. --> anemia w/u has been reviewed. will trend daily --> Hemoglobin goal is above 7. 2. Hyperglycemia, --> closely monitor. --> A1c goal less than 6.5. 3. Hypoalbuminemia potentially secondary to decreased p.o. intake. 4. Abdominal pain, seen by surgical service, not requiring surgery at this time. --> abd CT shows: Small accumulation of fluid or phlegmon versus abscess just anterior to the lower part of the abdominal wall in the area of prior surgery. Follow-up suggested. Apparent hysterectomy. Apparent cholecystectomy. Small hiatal hernia. Moderate fecal retention in the rectum. s/p surgery 5. Hypokalemia. --> on IV fluids, improved Subjective Date patient seen: Feb 02, 2018 ROS Limited/Unobtainable: Yes Allergies: Coded Allergies: ACETAMINOPHEN (Verified Allergy, Severe, Anaphylaxis, 11/13/17) ASPIRIN (Unverified Allergy, Severe, Anaphylaxis, 10/16/17) METOCLOPRAMIDE (Verified Allergy, Intermediate, 10/16/17) anxiety PROCHLORPERAZINE (Verified Allergy, Unknown, 10/16/17) anxiety All Systems: reviewed and negative except above Subjective No acute events. Vitals are stable. No c/o pain or discomfort, no resp distress. Objective Last 24 Hour Vital Signs Date Time Temp Pulse Resp B/P (MAP) Pulse Ox O2 Delivery O2 Flow Rate FiO2 02/02/18 08:00 98.2 75 20 105/68 100 Room Air 98.2 02/02/18 04:00 97.6 84 20 112/64 100 Room Air 97.6 02/02/18 00:00 98.2 82 20 101/57 100 Room Air 98.2 02/01/18 20:39 98.9 02/01/18 20:00 97.7 85 20 124/72 99 Room Air 97.7 02/01/18 16:00 98.9 97 20 112/56 100 Room Air 98.9 Intake and Output 02/01/18 02/02/18 19:00 07:00 Intake Total 1447.5 ml 1075.0 ml Balance 1447.5 ml 1075.0 ml Intake Oral 480 ml IV Total 967.5 ml 1075.0 ml # Voids 2 # Bowel Movements 1 Laboratory Tests 02/01/18 14:30: White Blood Count 6.8, Red Blood Count 4.23, Hemoglobin 9.1L, Hematocrit 30.3L, Mean Corpuscular Volume 72L, Mean Corpuscular Hemoglobin 21.5L, Mean Corpuscular Hemoglobin Concent 29.9L, Red Cell Distribution Width 16.3H, Platelet Count 416, Mean Platelet Volume 5.8L, Neutrophils (%) (Auto) 71.2, Lymphocytes (%) (Auto) 16.8L, Monocytes (%) (Auto) 10.3H, Eosinophils (%) (Auto ) 0.8, Basophils (%) (Auto) 0.8, Sodium Level 136, Potassium Level 3.9, Chloride Level 102, Carbon Dioxide Level 27, Anion Gap 7, Blood Urea Nitrogen 7 , Creatinine 1.5H, Estimat Glomerular Filtration Rate 50.1, Glucose Level 140H, Calcium Level 8.6, Total Bilirubin 0.2, Aspartate Amino Transf (AST/SGOT) 16, Alanine Aminotransferase (ALT/SGPT) 15, Alkaline Phosphatase 63, Total Protein 7.5, Albumin 3.2L, Globulin 4.3, Albumin/Globulin Ratio 0.7L 02/02/18 06:00: White Blood Count 6.6, Red Blood Count 3.79L, Hemoglobin 8.0L, Hematocrit 26.8L , Mean Corpuscular Volume 71L, Mean Corpuscular Hemoglobin 21.2L, Mean Corpuscular Hemoglobin Concent 30.0L, Red Cell Distribution Width 15.6H, Platelet Count 395, Mean Platelet Volume 5.8L, Neutrophils (%) (Auto) 62.1, Lymphocytes (%) (Auto) 21.5, Monocytes (%) (Auto) 14.6H, Eosinophils (%) (Auto) 1.2, Basophils (%) (Auto) 0.6, Sodium Level 140, Potassium Level 3.7, Chloride Level 107, Carbon Dioxide Level 27, Anion Gap 6, Blood Urea Nitrogen 9, Creatinine 1.8H, Estimat Glomerular Filtration Rate 40.6, Glucose Level 92, Calcium Level 8.8, Total Bilirubin 0.2, Aspartate Amino Transf (AST/SGOT) 16, Alanine Aminotransferase (ALT/SGPT) 17, Alkaline Phosphatase 56, Total Protein 6.9, Albumin 3.0L, Globulin 3.9, Albumin/Globulin Ratio 0.8L, Uric Acid 4.2, Phosphorus Level 4.8, Magnesium Level 2.3 Height (Feet): 5 Height (Inches): 7.00 Weight (Pounds): 280 General Appearance: no apparent distress, alert EENT: PERRL/EOMI Neck: normal alignment, supple Cardiovascular: normal peripheral pulses Respiratory/Chest: no respiratory distress Abdomen: soft Ho Canchola MD Feb 02, 2018 12:47
[2018-02-02] MEDS ORDERED: Albumin Human 5% 250ml IV SCH (13:15)
--- NOTE | 2018-02-02 13:53 | General Progress Note ---
Progress Note Progress Note Surgery: no acute events. states she feels much better now. no n/v/f/c. tolerating diet exam benign and stable. labs okay -d/c planning for tomorrow -patient plans to go home to [place] after discharge to be with her mother who will help provide wound care. Gus Scott Feb 02, 2018 13:53
[2018-02-02] MEDS ORDERED: Albumin Human 5% 500ml IV ONE (14:00)
[2018-02-02 16:00] VITALS: BP 137/87
[2018-02-02] MEDS: Potassium Chloride 10 MEQ in D5 1/2NS 1,000 ML IV SCH (18:02)
[2018-02-02 20:00] VITALS: BP 103/55
[2018-02-02] MEDS: Dyna-Hex 2% Top Sol 2oz TOPIC SCH (20:17)
[2018-02-02] MEDS: Iron Sucrose 100 MG in NS 55 ML IV SCH (20:18)
[2018-02-03 04:30] VITALS: BP 127/74
[2018-02-03] MEDS: Morphine Sulfate 4mg/ml Inj IVP PRN ×2 (05:06→08:57)
[2018-02-03] MEDS: DiphenhydrAMINE 50mg/ml Inj IVP PRN ×2 (05:07→11:08)
[2018-02-03 08:00] VITALS: BP 140/78
[2018-02-03] MEDS: Potassium Chloride 10 MEQ in D5 1/2NS 1,000 ML IV SCH (08:12)
[2018-02-03] MEDS: Piperacillin/Tazobactam 3.375 GM in NS 110 ML IVPB SCH (08:56)
[2018-02-03] MEDS: Docusate 100mg cap ORAL SCH (08:57)
[2018-02-03] MEDS: Vitamin B12 1000mcg/ml Inj SUBQ SCH (08:57)
[2018-02-03] MEDS ORDERED: Heplock Flush 100 units/ml 3 ml syr INJ SCH (10:00)
--- NOTE | 2018-02-03 10:07 | Diagnostic Imaging Report ---
APPROVED REPORT CPT Code: 20217 Present Symptoms Comments: ABNORMAL LABS Comments Technically difficult study due to patient body habitus. Thigh area BILATERAL: Imaging reveals a patent deep venous system bilaterally. There is no evidence of thrombus within the femoral, popliteal or tibial segments. The greater saphenous veins are also within normal limits. Doppler indicates normal spontaneous flow within these segments.
[2018-02-03 10:49] LABS: BASOPHILS % (AUTO) 0.9 % (0.0-2.0); EOSINOPHILS % (AUTO) 0.5 % (0.0-3.0); HEMATOCRIT 27.2 % (37.0-47.0); LYMPHOCYTES % (AUTO) 12.2 % (20.0-45.0); MEAN CORPUSCULAR VOLUME 71 FL (80-99); MONOCYTES % (AUTO) 12.9 % (1.0-10.0); NEUTROPHILS % (AUTO) 73.5 % (45.0-75.0); PLATELET COUNT 398 K/UL (150-450); RED BLOOD COUNT 3.81 M/UL (4.20-5.40); RED CELL DISTRIBUTION WIDTH 15.8 % (11.6-14.8); WHITE BLOOD COUNT 9.6 K/UL (4.8-10.8)
[2018-02-03] MEDS ORDERED: BACTRIM 400-801 EACH ORAL (11:01)
[2018-02-03] MEDS ORDERED: CEPHALEXIN500 MG ORAL (11:01)
--- NOTE | 2018-02-03 11:04 | General Progress Note ---
Assessment/Plan Status: stable Assessment/Plan 1. Anemia due to iron deficiency. Anemia w/u was reviewed, TIBC elevated and iron level is low, ferritin borderline but likely from reactive process --> Start 01/31 on IV iron for a total of five doses. --> The patient continues to be microcytic. h/o hysterectomy. --> anemia w/u has been reviewed. will trend daily --> Hemoglobin goal is above 7. 2. Hyperglycemia, --> closely monitor. --> A1c goal less than 6.5. 3. Hypoalbuminemia potentially secondary to decreased p.o. intake. 4. Abdominal pain, seen by surgical service, not requiring surgery at this time. --> abd CT shows: Small accumulation of fluid or phlegmon versus abscess just anterior to the lower part of the abdominal wall in the area of prior surgery. Follow-up suggested. Apparent hysterectomy. Apparent cholecystectomy. Small hiatal hernia. Moderate fecal retention in the rectum. s/p surgery 5. Hypokalemia. --> on IV fluids, improved Subjective Date patient seen: Feb 03, 2018 ROS Limited/Unobtainable: Yes Allergies: Coded Allergies: ACETAMINOPHEN (Verified Allergy, Severe, Anaphylaxis, 11/13/17) ASPIRIN (Unverified Allergy, Severe, Anaphylaxis, 10/16/17) METOCLOPRAMIDE (Verified Allergy, Intermediate, 10/16/17) anxiety PROCHLORPERAZINE (Verified Allergy, Unknown, 10/16/17) anxiety All Systems: reviewed and negative except above Subjective No acute events. Pt refused am lab draw. Vitals are stable. Placement issue. Objective Last 24 Hour Vital Signs Date Time Temp Pulse Resp B/P (MAP) Pulse Ox O2 Delivery O2 Flow Rate FiO2 02/03/18 10:58 97.7 02/03/18 08:57 97.7 02/03/18 08:00 97.1 94 20 140/78 98 97.1 02/03/18 04:30 97.7 74 20 127/74 100 Room Air 97.7 02/02/18 20:00 99.1 81 20 103/55 96 Room Air 99.1 02/02/18 16:00 98.2 82 20 137/87 100 Room Air 98.2 02/02/18 12:00 98.1 78 20 106/79 100 Room Air 98.1 Intake and Output 02/02/18 02/03/18 19:00 07:00 Intake Total 240 ml 995.0 ml Balance 240 ml 995.0 ml Intake Oral 240 ml 300 ml IV Total 695.0 ml # Voids 4 3 Laboratory Tests 02/03/18 10:15: White Blood Count 9.6, Red Blood Count 3.81L, Hemoglobin 8.0L, Hematocrit 27.2L , Mean Corpuscular Volume 71L, Mean Corpuscular Hemoglobin 21.1L, Mean Corpuscular Hemoglobin Concent 29.6L, Red Cell Distribution Width 15.8H, Platelet Count 398, Mean Platelet Volume 6.1L, Neutrophils (%) (Auto) 73.5, Lymphocytes (%) (Auto) 12.2L, Monocytes (%) (Auto) 12.9H, Eosinophils (%) (Auto ) 0.5, Basophils (%) (Auto) 0.9, Sodium Level [Pending], Potassium Level [ Pending], Chloride Level [Pending], Carbon Dioxide Level [Pending], Blood Urea Nitrogen [Pending], Creatinine [Pending], Estimat Glomerular Filtration Rate [ Pending], Glucose Level [Pending], Uric Acid [Pending], Calcium Level [Pending] , Phosphorus Level [Pending], Magnesium Level [Pending], Total Bilirubin [ Pending], Aspartate Amino Transf (AST/SGOT) [Pending], Alanine Aminotransferase (ALT/SGPT) [Pending], Alkaline Phosphatase [Pending], Pro-B-Type Natriuretic Peptide [Pending], Total Protein [Pending], Albumin [Pending], Globulin [Pending ], Random Vancomycin Level [Pending] Height (Feet): 5 Height (Inches): 7.00 Weight (Pounds): 280 General Appearance: no apparent distress, alert EENT: PERRL/EOMI Neck: normal alignment, supple Cardiovascular: normal peripheral pulses Respiratory/Chest: normal breath sounds, no respiratory distress Abdomen: normal bowel sounds, soft KleynHo contreras MD Feb 03, 2018 11:04
[2018-02-03 11:07] LABS: ALANINE AMINOTRANSFERASE 21 U/L (12-78); ALBUMIN 2.9 G/DL (3.4-5.0); ALBUMIN/GLOBULIN RATIO 0.7 (1.0-2.7); ALKALINE PHOSPHATASE 58 U/L (46-116); ANION GAP 8 mmol/L (5-15); ASPARTATE AMINO TRANSFERASE 15 U/L (15-37); BILIRUBIN,TOTAL 0.2 MG/DL (0.2-1.0); BLOOD UREA NITROGEN 7 mg/dL (7-18); CALCIUM 8.8 MG/DL (8.5-10.1); CARBON DIOXIDE 26 MMOL/L (21-32); CHLORIDE 106 MMOL/L (98-107); CREATININE 2.2 MG/DL (0.55-1.30); POTASSIUM 3.8 MMOL/L (3.5-5.1); SODIUM 140 MMOL/L (136-145)
[2018-02-03 11:16] LABS: PHOSPHORUS 4.3 MG/DL (2.5-4.9)
--- NOTE | 2018-02-03 11:59 | General Progress Note ---
Progress Note Progress Note Surgery: doing well. no acute events. comfortable. pain minimal. changed dressings on her own d/c home today rx written f/u with me after returning from home in [place] with mother. Gus Scott Feb 03, 2018 11:59
--- NOTE | 2018-02-04 07:38 | Discharge Summary ---
Discharge Summary Discharge Summary _ DATE OF ADMISSION: 01/30/2018 DATE OF DISCHARGE: 02/03/2018 REASON FOR ADMISSION: 27 years old female with past medical history significant for hypertension, s/ p hysterectomy secondary to fibroids in November 2017 at [facility], atrial septal defect, morbid obesity, presented to emergency department complaining of the surgical site drainage. Patient also undergone drainage at the surgical site at [facility] last week. Upon evaluation patient was afebrile. Laboratory workup revealed no leukocytosis. CT of the abdomen and pelvis revealed 9 x 2 cm abscess and lower abdominal wall in the area of surgery. Hemoglobin 8.3 hematocrit 28.6. Urinalysis with no evidence of UTI . Lactate within normal limits, electrolytes stable . Patient admitted with diagnosis of abdominal wall abscess at site of surgical wound, recent hysterectomy. CONSULTANTS: ID specialist dr. Flannery cooker operator Dr. Solitario material control clerk/oncologist [facility] surgery Dr. Scott [facility] COURSE: Patient admitted. Patient started on empiric antibiotics. ID specialist and surgeon closely followed. Patient subsequently undergone on 01/31 incision and drainage of abdominal abscess. Blood culture were negative , wound culture was negative. Patient was on IV antibiotics as per ID specialist directions. Upon discharge, antibiotic were changed to oral as per ID recommendation to complete the course. Patient was afebrile, no leukocytosis. Wound care provided, and patient was taught to change dressing by herself. Pain management provided : pain was addressed and controlled. Renal parameters and electrolytes were closely monitored. Patient developed acute renal failure . Nephrology consult was requested. Toradol was stopped , and vancomycin was placed on hold. Albumin bolus given. Patient will need close monitoring of renal parameters as outpatient and avoid nephrotoxics. Potassium was replaced Patient with evidence of anemia . [place] Sewer closely followed. Anemia workup revealed iron deficiency anemia, folate deficiency and borderline B12 . Patient received injection of B12 , IV iron and started on oral folate replacement DVT prophylaxis provided. Blood pressure was closely monitored. Surgeon cleared patient for discharge. Discharge instructions and scripts provided. Patient was stable for discharge home FINAL DIAGNOSES: Abdominal wall abscess at site of surgical wound s/p incision and drainage of abdominal abscess 01/31/18 history of recent hysterectomy (November 2017) iron deficiency anemia acute renal failure Hypertension hypokalemia obesity DISCHARGE MEDICATIONS: See Medication Reconciliation list. DISCHARGE INSTRUCTIONS: Patient was discharged home; follow-up with surgeon as advised I have been assigned to dictate discharge summary for this account. I was not involved in the patient's management. Indiana Epps NP Feb 04, 2018 07:38
== END 2018-02-03 12:20 | disposition home or self-care (01) | DRG 711 ==
LOC: EMR 12:07 → 4E 12:59 → EDBEDREQ 15:27
DX: T81.4XXA Infection following a procedure, initial encounter (principal); N17.9 Acute kidney failure, unspecified; Z68.41 Body mass index [BMI] 40.0-44.9, adult; E88.09 Other disorders of plasma-protein metabolism, not elsewhere classified; L02.211 Cutaneous abscess of abdominal wall; I10 Essential (primary) hypertension; D50.9 Iron deficiency anemia, unspecified; R73.9 Hyperglycemia, unspecified; E87.6 Hypokalemia; K56.41 Fecal impaction; E66.9 Obesity, unspecified
CPT/HCPCS: 36415; 74177; 80053; 80061; 80202; 81003; 81025; 82607; 82728; 82746; 82977; 83020; 83036; 83540; 83550; 83605; 83735; 83880; 84100; 84443; 84550; 85025; 85044; 86140; 87040; 87070; 87075; 87081; 87205; 93970; 94003; 94150; 99285; J2405; J8499